=== PATIENT | male | born 1970 | race Caucasian/White ===

== ENCOUNTER 2024-09-12 06:29 | Outpatient (OUT) | payer OTHER, SELFPAY ==
[2024-09-12 06:43] LABS: Basophils Percent Auto 0.8 % (0.2-2.0); Eosinophils Absolute Auto 0.3 10^3/uL (0.0-0.7); Eosinophils Percent Auto 5.2 % (0.9-7.0); Hematocrit 44.9 % (42.0-54.0); Hemoglobin 15.1 g/dL (14.0-18.0); Immature Granulocytes Abs Auto 0.03 10^3/uL (0.00-0.03); Immature Granulocytes Pct Auto 0.6 % (0.0-0.5); Lymphocytes Absolute Auto 1.6 10^3/uL (1.2-3.8); Lymphocytes Percent Auto 30.8 % (20.5-60.0); Mean Corpuscular HGB Conc 33.6 g/dL (29.9-35.2); Mean Corpuscular Hemoglobin 30.4 pg (25.9-34.0); Mean Corpuscular Volume 90.3 fL (80.0-94.0); Mean Platelet Volume 10.8 fL (9.5-13.5); Monocytes Absolute Auto 0.5 10^3/uL (0.3-0.8); Monocytes Percent Auto 9.7 % (1.7-12.0); Neutrophils Absolute Auto 2.7 10^3/uL (1.4-6.5); Neutrophils Percent Auto 52.9 % (43.0-75.0); Platelet Count 98 10^3/uL (150-450); Red Blood Count 4.97 10^6/uL (4.70-6.10); Red Cell Distribution Width 13.6 % (11.0-15.0)
[2024-09-12 07:29] LABS: Alanine Aminotransferase 41 U/L (16-63); Albumin Globulin Ratio 1.3; Albumin Level 3.9 g/dL (3.4-5.0); Alkaline Phosphatase 66 U/L (46-116); Anion Gap 12.1; Aspartate Amino Transferase 33 U/L (15-37); BUN Creatinine Ratio 16.7; Bilirubin Total 1.5 mg/dL (0.2-1.0); Calcium 8.7 mg/dL (8.5-10.1); Carbon Dioxide 30.1 mmol/L (21.0-32.0); Chloride 105 mmol/L (98-107); Chol HDL Ratio 3.3; Cholesterol 243 mg/dL (<=200); Estimated GFR (African America >60 (>=60 mL/min/1.73m^2); Estimated GFR (Non-African Ame >60 (>=60 mL/min/1.73m^2); Glucose 97 mg/dL (74-106); HDL Cholesterol 73 mg/dL (40-60); Potassium 4.2 mmol/L (3.5-5.1); Sodium 143 mmol/L (136-145); Thyroid Stimulating Hormone 2.334 uIU/mL (0.358-3.740); Total Protein 6.9 g/dL (6.4-8.2); Triglycerides 89 mg/dL (<=150); VLDL CHOLESTEROL 17.8 mg/dL
[2024-09-12 07:35] LABS: Prostate Specific Antigen Scrn 0.59 ng/mL (<=4.00)
== END 2024-09-12 06:30 | disposition home or self-care (01) ==
LOC: LAB 06:29
PROVIDERS: PCP Family Medicine; Visit Provider Family Medicine
DX: Z00.00 Encounter for general adult medical examination without abnormal findings (principal); Z12.5 Encounter for screening for malignant neoplasm of prostate
CPT/HCPCS: 36415; 80053; 80061; 84443; 85025; G0103

== ENCOUNTER 2025-09-21 06:25 | Outpatient (OUT) | payer OTHER, SELFPAY ==
--- OUTSIDE RECORDS SUMMARY | 2025-09-14 10:00 | XMS_ITS | Encounter Summary ---
Author Organization [facility] Healthcare Address [address] [place] [address] Care Team Providers Care Entry Level Manufacturing Engineer Name Role Phone Margarita De La Cruz MD Primary Care Provider [phone] Reason for Visit * ReasonCommentsConsultUmbilical hernia- No pain, just growing in size * Consultation (Routine) - ClosedSpecialtyDiagnoses / ProceduresReferred By ContactReferred To ContactGeneral Surgery Diagnoses Umbilical hernia without obstruction or gangrene Procedures [place] OFFICE/OUTPATIENT [facility] MDM 60 MINUTES Margarita De La Cruz MD [address] [facility] [place] [address] Phone: tel: fax: [facility] [address] [place] [phone] Phone: tel: fax: Referral IDStatusReasonStart DateExpiration DateVisits RequestedVisits [id number] Required Encounter Details DateTypeDepartmentCare Team (Latest Contact Info)Murvzragygg32/21/2025 10:00 AM ESTConsult [facility] [address] [place] [phone] Gaston Yuan MD [address] [place] [id number] Umbilical hernia without obstruction and without gangrene (Primary Dx) Social History Tobacco UseTypesPacks/DayYears UsedDateSmoking Tobacco: NeverSmokeless Tobacco: Never Tobacco Cessation:Counseling Given: Not Answered Sex and Gender InformationValueDate RecordedSex Assigned at BirthNot on file Legal BdoSwtg9402/22/2023 8:35 PM EDTGender IdentityNot on fileSexual Orientation Not on filedocumented as of this encounter Last Filed Vital Signs Vital SignReadingTime TakenCommentsBlood Wbwcixsq623/7411 10:34 AM EST Pulse--Temperature--Respiratory Rate--Oxygen Saturation--Inhaled Oxygen Concentration--Gufaqh75.3 kg (210 lb)09/14/2025 10:34 AM MASRzzfry580.9 cm (6') 09/14/2025 10:34 AM ESTBody Mass Index28.4809/14/2025 10:34 AM ESTdocumented in this encounter Progress Notes * Gaston Reese MD - 09/14/2025 10:00 AM EST Images from the original note were not included. Greg Weathers 1970 Greg Weathers is a 55 y.o. male presents with chief complaint of Consult (Umbilical hernia- No pain, just growing in size) HPI: Mr Weathers is a 55 year old male presenting for evaluation for a potential umbilical hernia. He is interested in treatment to avoid potential complications. He estimates he first noticed this about a year ago. He feels the size of the bulge has been increasing in size recently. He denies any pain and states the bulge has always been reducible. He denies fever, chills, chest pain, SOB, change in appetite, nausea, vomiting, abdominal pain, difficulty urinating. He denies any known medication allergies. His only daily medications are Celebrex and Pulmicort. He denies taking blood thinners. His only previous surgery was for a Right inguinal hernia around 1993, for which he has not had any complications. SUBJECTIVE: MEDICATIONS: ALLERGIES Current Outpatient Medications Medication Instructions celecoxib (CELEBREX) 100 mg, 2 times daily multivitamin with minerals (Centrum) 9-200 mg-mcg tablet split tablet 1 tablet Pulmicort Flexhaler 180 MCG/ACT inhaler 2 puffs, 2 times daily Allergies[1] PAST MEDICAL HISTORY: SOCIAL HISTORY SURGICAL HISTORY: Medical History[2] Social History[3] Surgical History[4] REVIEW OF SYMPTOMS: Review of Systems Constitutional: Negative for chills and fever. Respiratory: Negative for cough and shortness of breath. Cardiovascular: Negative for chest pain. Gastrointestinal: Negative for abdominal pain, nausea and vomiting. Genitourinary: Negative for difficulty urinating. OBJECTIVE: Visit Vitals BP 120/74 Ht 6' Wt 210 lb BMI 28.48 kg/m?? Smoking Status Never BSA 2.2 m?? Physical Exam Constitutional: General: He is not in acute distress. Appearance: Normal appearance. He is not ill-appearing. Cardiovascular: Rate and Rhythm: Normal rate and regular rhythm. Heart sounds: Normal heart sounds. No murmur heard. Pulmonary: Effort: Pulmonary effort is normal. No respiratory distress. Breath sounds: Normal breath sounds. No wheezing. Abdominal: General: Abdomen is flat. Bowel sounds are normal. There is no distension. Palpations: Abdomen is soft. Tenderness: There is no abdominal tenderness. There is no guarding. Hernia: A hernia is present. Comments: Reducible Umbilical hernia .fascial defect measuring about 2 cm Neurological: Mental Status: He is alert and oriented to person, place, and time. ASSESSMENT AND PLAN: Assessment/Plan Diagnoses and all orders for this visit: Umbilical hernia without obstruction and without gangrene Other orders - Ambulatory referral to General Surgery The plan will be to repair the umbilical hernia with mesh. Procedure, benefits, risks including risks of bleeding, infection, recurrence of hernia, hematoma / seroma were discussed. Booklet on herniasurgery was reviewed with the patient. [1] No Known Allergies [2] Past Medical History: Diagnosis Date Asthma (HCC) Uveitis [3] Social History Tobacco Use Smoking status: Never Smokeless tobacco: Never Substance Use Topics Drug use: Never [4] Past Surgical History: Procedure Laterality Date HERNIA REPAIR Right Inguinal hernia repair documented in this encounter Plan of Treatment DateTypeDepartmentCare Team (Latest Contact Info)Qvkiwnheale43/22/2025 11:30 AM ESTOffice Visit [facility] [address] [phone] Gaston Yuan MD [address] [address] documented as of this encounter Visit Diagnoses Diagnosis Umbilical hernia without obstruction and without gangrene- Primary documented in this encounter Care Teams Team MemberRelationshipSpecialtyStart DateEnd Date Margarita De La Cruz MD [address] [place] [phone] PCP - GeneralFamily Mfcuzfjy43/21/25documented as of this encounter
--- OUTSIDE RECORDS SUMMARY | 2025-09-21 06:30 | XMS_ITS | CCD ---
Author Organization [facility] Care Team Providers Care Lens Coating Technician Name Role Phone MARGARITA MONROE Attending Unavailable MARGARITA MONROE Admitting Unavailable MARGARITA MONROE Primary Care Unavailable MARGARITA MONROE Consulting Unavailable MARGARITA MONROE Attending Unavailable MARGARITA MONROE Admitting Unavailable MARGARITA MONROE Primary Care Unavailable MARGARITA MONROE Consulting Unavailable SARAH SUAREZ Consulting Unavailable MARGARITA MONROE Attending Unavailable MARGARITA MONROE Admitting Unavailable MARGARITA MONROE Primary Care Unavailable MARGARITA MONROE Consulting Unavailable MARGARITA MONROE Attending Unavailable MARGARITA MONREO Admitting Unavailable MARGARITA MONROE Primary Care Unavailable Margarita Monroe Primary Care Provider Margarita Monroe Unavailable Primary Care Provider Unavailjania e SHEREE YOON Attending Unavailable KAMRAN VENCES Attending Unavailable Margarita Monroe MD Primary Care Provider Margarita Monroe MD Attending Provider Medications Current Medications MedicationDrug Class(es)DatesSig (Normalized)Sig (Original)atropine sulfate 10 mg/ml ophthalmic solution (3 sources)Anticholinergic, Cholinergic Muscarinic AntagonistStart: 05-28-2025 End: 54-23-9890dngk 1 drop(s) into the eye(s) in the morning, then take 1 drop(s) into the eye(s) in the evening, then take 1 drop(s) into the eye(s) at bedtimeatropine 1 % ophthalmic solution Indications: Intermediate uveitis of left eye Administer 1 drop into both eyes in the morning and 1 drop in the evening and 1 drop before bedtime. Do all this for 14 days. 5 mL 1 05/28/2025 06/11/2025 Activeazithromycin 250 mg oral tablet (1 source)Macrolide AntimicrobialStart: 65-31-2178Qdpkiugzipdk 250 MG as directed Orally 2 tabs po today, then 1 tab daily x 4 more days for 5 Jun, Activebenzonatate 200 mg oral capsule (1 source)Non-narcotic AntitussiveStart: 52-91-2407qxgh 1 capsule by mouth every eight hoursBenzonatate 200 MG 1 capsule Orally Three times a day for 10 day(s) Jun, ActiveBudesonide (10 sources)CorticosteroidStart: 45-73-7397Tgxxblwpvm 180 mcg/actuation aerosol powdr breath activated Active 2 INH INHALATION Twice daily 1 3August 24, 2025 1:52pm Complies with drug therapyStart: 01-81-1905bhds 2 puff(s) by inhalation in the morningPulmicort Flexhaler 180 MCG/ACT inhaler Inhale 2 puffs in the morning and 2 puffs before bedtime. 03/27/2025 ActiveStart: 03-27-2025 End: 17-31-7828Vhhvrowurc 180 mcg/actuation aerosol powdr breath activated Discontinued 2 INH INHALATION Twice daily 1 March 27, 2025 1:25pm August 24, 2025 1:52pmStart: 09-07-2024 End: 66-86-9019Sxwljrieuz 180 mcg/actuation aerosol powdr breath activated Discontinued 2 INH INHALATION Twice daily 1 September 07, 2024 10:19am March 27, 2025 1:25pmStart: 79-73-2513Jvewvuqlfs 180 mcg/actuation aerosol powdr breath activated Active 2 INH INHALATION Twice daily September 07, 2024 9:19amStart: 07-07-2024 End: 36-86-9317pmuo 90 ug by inhalation twice dailyBudesonide (Pulmicort Flexhaler) 90 mcg/actuation aerosol powdr breath activated Discontinued 2 INH INHALATION Twice daily 10 27July 07, 2024 12:00am September 07, 2024 10:21amcelecoxib 100 mg oral capsule (11 sources)Nonsteroidal Anti-inflammatory DrugStart: 99-11-1949hnym 1 capsule by mouth in the morningcelecoxib (CeleBREX) 100 MG capsule Take 100 mg by mouth in the morning and 100 mg before bedtime. 03/27/2025 ActiveStart: 06-29-2024 End: 84-32-1460vyfz 1 capsule by mouth twice dailyCelecoxib 100 mg capsule Active 0 .ROUTE .COMPLEX 180 3 June 26, 2025 1:48pm TAKE 1 CAPSULE BY MOUTH TWICE A DAY Complies with drug therapyStart: 06-29-2024 End: 91-34-2436xebd 1 capsule by mouth twice dailyCelecoxib (Celebrex) 100 mg capsule Discontinued 100 MG PO Twice daily June 29, 2024 12:00am June 29, 2024 11:18amtake 1 capsule by mouth twice dailyCelecoxib 100 MG TAKE 1 CAPSULE BY MOUTH TWICE A DAY for 90 Activehomatropine hydrobromide 50 mg/ml ophthalmic solution (2 sources)Cholinergic Muscarinic AgonistStart: 05-21-2025 End: 34-78-5204oehdlxibcgo 5 % ophthalmic solution Indications: Intermediate uveitis of left eye Administer 1 dropinto both eyes in the morning and 1 drop at noon and 1 drop in the evening and 1 drop before bedtime. Do all this for 14 days. 5 mL 05/21/2025 05/28/2025 Discontinued (Other)Multivitamin Adults - (2 sources)Start: 61-18-9756Rjkbcdhkzzti Adults - as directed Orally daily for 0 days Apr, ActiveMultivitamin tablet (2 sources)Start: 47-15-0774ksob 1 tablet by mouth once dailyMultivitamin tablet Active 1 TAB PO Daily September 07, 2024 1:00am Complies with drug therapy Start: 78-74-7460tgkq 1 tablet by mouth once dailyMultivitamin tablet Active 1 TAB PO Daily September 07, 2024 12:00am Completed/Discontinued Medications MedicationDrug Class(es)DatesSig (Normalized)Sig (Original)dexamethasone 1 mg/ml / tobramycin 3 mg/ml ophthalmic suspension (4 sources)Aminoglycoside Antibacterial, CorticosteroidStart: 05-21-2025 End: 81-08-1349pmivsselhe-dexAMETHasone (Tobradex) ophthalmic suspension Indications: Intermediate uveitis of lefteye Administer 2 drops into the left eye in the morning and 2 drops at noon and 2 drops in the evening and 2 drops before bedtime. Do all this for 10 days. 5 mL 05/21/2025 06/04/2025 Cpxrcqe669 actuat fluticasone propionate 0.11 mg/actuat metered dose inhaler (8 sources)CorticosteroidStart: 02-25-2024 End: 35-33-1351twnp 2 puff(s) by mouth twice dailyFluticasone Propionate 110 mcg/actuation HFA aerosol inhaler Discontinued 0 .ROUTE .COMPLEX 12 July 07, 2024 12:12pm September 07, 2024 10:10am INHALE 2 PUFFS BY MOUTH TWICE DAILYStart: 02-25-2024 End: 01-25-6185gbfm 1 puff(s) by inhalation twice dailyFluticasone Propionate 110 mcg/actuation HFA aerosol inhaler Discontinued 2 PUFF INHALATION Twice daily February 25, 2024 12:00am February 25, 2024 10:34amtake 2 puff(s) by mouth twice daily Flovent HFA 110 MCG/ACT INHALE 2 PUFFS BY MOUTH TWICE DAILY for 30 Active Fluticasone Propionate 110 mcg/actuation HFA aerosol inhaler (6 sources)Start: 07-07-2024 End: 06-40-6863wuja 2 puff(s) by mouth twice dailyFluticasone Propionate 110 mcg/actuation HFA aerosol inhaler Discontinued 0 .ROUTE .COMPLEX July 07, 2024 11:12am September 07, 2024 9:10am INHALE 2 PUFFS BY MOUTH TWICE DAILYStart: 07-03-2024 End: 53-28-2175ohmu 2 puff(s) by mouth twice dailyFluticasone Propionate 110 mcg/actuation HFA aerosol inhaler Discontinued 0 .ROUTE .COMPLEX July 03, 2024 10:11am July 07, 2024 11:12am INHALE 2 PUFFS BY MOUTH TWICE DAILYStart: 2024 End: 04-23-4291rouy 2 puff(s) by mouth twice dailyFluticasone Propionate 110 mcg/actuation HFA aerosol inhaler Discontinued 0 .ROUTE .COMPLEX 2024 12:17pm July 03, 2024 10:12am INHALE 2 PUFFS BY MOUTH TWICE DAILYStart: 04-07-2024 End: 03-49-7433osxf 2 puff(s) by mouth twice dailyFluticasone Propionate 110 mcg/actuation HFA aerosol inhaler Discontinued 0 .ROUTE .COMPLEX 2023 11:49am 2024 12:17pm INHALE 2 PUFFS BY MOUTH TWICE DAILY Start: 02-25-2024 End: 50-39-2680rvyi 2 puff(s) by mouth twice dailyFluticasone Propionate 110 mcg/actuation HFA aerosol inhaler Discontinued 0 .ROUTE .COMPLEX February 25, 2024 9:34am April 07, 2024 11:49am INHALE 2 PUFFS BY MOUTH TWICE DAILYStart: 02-25-2024 End: 84-92-8482wffn 1 puff(s) by inhalation twice dailyFluticasone Propionate 110 mcg/actuation HFA aerosol inhaler Discontinued 2 PUFF INHALATION Twice daily February 24, 2024 11:00pm February 25, 2024 9:34am Problems Active Problems Problem ClassificationProblemDateDocumented DateEpisodic/ChronicAsthma (5 sources)Asthma; Translations: [Unspecified asthma, uncomplicated]09-07-2024 ChronicChronic obstructive pulmonary disease and bronchiectasis (1 source)Bronchitis, not specified as acute or chronicEpisodicCoagulation and hemorrhagic disorders (6 sources)Thrombocytopenia, unspecified; Translations: [Thrombocytopenic disorder]Onset: 96-53-5696UjopkgxXfxwwbgduudw; infection of eye (except that caused by tuberculosis or sexually transmitteddisease) (2 sources)Intermediate uveitis; Translations: [Posterior cyclitis, left eye] 60-22-6232IpyrnehVqraqirieeop; infection of eye (except that caused by tuberculosis or sexually transmitteddisease) (1 source)Keratitis; Translations: [Unspecified keratitis]60-53-2497Aaomguex Osteoarthritis (4 sources)Osteoarthritis; Translations: [Unspecified osteoarthritis, unspecified site]ChronicOther connective tissue disease (2 sources)Pain in right arm; Translations: [Pain in right arm]EpisodicOther gastrointestinal disorders (2 sources)Diarrhea; Translations: [Diarrhea, unspecified]12-00-9641Lfsimkoc Other non-traumatic joint disorders (2 sources)Shoulder joint pain; Translations: [Pain in left shoulder]Episodic Other screening for suspected conditions (not mental disorders or infectious disease) (3 sources)Patient encounter status; Translations: [Encounter for screening for malignant neoplasm of prostate]62-79-4247Yorlafsy Past or Other Problems Problem ClassificationProblemDateDocumented DateEpisodic/ChronicOther connective tissue disease (4 sources)Pain in right arm; Translations: [PAIN IN RIGHT ARM]Onset: 04-01-2020 Episodic Results Test NameValueInterpretationReference RangeFacilityCNOVSPon 52-81-3010BLZKUO Visit (SP) Office ([place]) SARAH WEATHERS ([id number]) 1970 M Date Time Provider Department 01/31/21 9:30 AM CARA CHANDLER During your visit today, we recorded the following information about you: Temperature Pulse Respiration Blood pressure 97.7 degrees 60/minute 16/minute 142/70 Weight Height 90.2 kg 1.829 m CARA CHANDLER PA-C 01/31/2021 1:37 PM Signed PATIENT NAME: Sarah Weathers CLINIC NO.: [id number] ATTENDING PHYSICIAN: Dru Panda MD DATE OF SERVICE: January 31, 2021 ? (Elements copied from Dr. Panda's note dated November 01, 2020, have been reviewed and updated where appropriate, and all reflect current assessment and medical decision making during today's encounter, January 31, 2021) ? Diagnosis: ? 1.Thrombocytopenia ? 2. Uveitis ? Treatment History: ? 1. None ? HPI: Sarah Weathers is a 50 year old year old male here for follow up. Feels well and denies any new complaints at this time. No nausea and also diarrhea. ? He denies h/o excessive drinking. ? His work up including paraproteins, B12, Folate and also negative Hep studies, HIV, ROSALINO normal, YAHAIRA positive but Anti DS DNA was negative and additional serologies were negative. ? He did have CT of the chest and Abdomen and Pelvis 10/30/2020 with cirrhosis and also mild splenomegaly and trace pelvic ascites and also Gastroesophageal varices. HPI: Sarah Weathers is a 50 year old male who presents in follow up. Since his last visit he did see rheumatology and GI. His EGd and colonoscopy were done 01/15 and negative. He contineus to feel well and has no bleeding or bruising issues. SUBJECTIVE ROS: GENERAL: No weight loss, malaise or fevers., SEE HPI HEENT: Negative for frequent or significant headaches, No changes in hearing or vision, no nose bleeds or other nasal problems RESPIRATORY: Negative for cough, wheezing or shortness of breath. CARDIOVASCULAR: Negative for chest pain, leg swelling or palpitations. GI: Negative for abdominal discomfort, blood in stools or black stools or change in bowel habits : No history of dysuria, frequency or incontinence MUSCULOSKELETAL: Negative for: joint pain or swelling, back pain and muscle pain SKIN: Negative for lesions, rash, and itching. HEMATOLOGY/LYMPHOLOGY: Negative for prolonged bleeding, bruising easily or swollen nodes. NEURO: No history of headaches, syncope, paralysis, seizures or tremors All other systems reviewed are negative. Current Outpatient Medications Medication Sig - ALBUTEROL INHALATION Inhale as instructed. - polyethylene glycol 3350 (MIRALAX, GLYCOLAX) 17 gram/dose powder Use as directed for Miralax / Gatorade Bowel Prep Kit (Patient not taking: Reported on 01/08/2021 ) - Gatorade Sports Drink Use as directed for Miralax / Gatorade Bowel Prep Kit (Patient not taking: Reported on 01/08/2021 ) - Bisacodyl (DULCOLAX) 5 mg tab Use as directed for Miralax / Gatorade Bowel Prep Kit (Patient not taking: Reported on 01/08/2021 ) - MULTI-VITAMIN ORAL once daily. - celecoxib (CELEBREX) 100 mg capsule Take 1 capsule by mouth twice daily. - FLOVENT HFA 110 mcg/actuation inhaler INHALE 2 (TWO) puffs BY MOUTH TWICE DAILY No current facility-administered medications for this visit. PAST MEDICAL HISTORY Diagnosis Date - Asthma - Thrombocytopenia (HCC) PHYSICAL EXAM: BP 142/70 Pulse 60 Temp 36.5 ?C (97.7 ?F) (Temporal) Resp 16 Ht 182.9 cm (6' 0.01 ) Wt 90.2 kg (198 lb 12.8 oz) SpO2 100% BMI 26.96 kg/m? Exam limited to gross visualization where appropriate due to COVID-19. Gen.: This is an age-appropriate patient in no acute distress. Head: Appears atraumatic with no visible lesions. Eyes: Pupils equally round and reactive to light, extraocular muscles are intact. Neck: Supple. Mouth: Mucous membranes appeared to be moist. Respiratory: Appears to be respiring comfortably. Neurologic: Nonfocal to gross visualization. Alert and oriented ?3. Psychiatric: No evidence of inappropriate anxiety or depression. Skin: Visible areas of skin without rash, lesions, wounds or petechiae. LAB: Hemoglobin (g/dL) Date Value 01/31/2021 14.0 Hematocrit (%) Date Value 01/31/2021 41.4 WBC (k/uL) Date Value 01/31/2021 4.52 PATH: ? Imaging: CT of the chest and Abdomen and Pelvis 10/30/2020: ? 1. ?No evidence of intra-abdominal/intrapelvic lymphadenopathy. 2. ?Nodular hepatic contour compatible with cirrhosis. 3. ?Mild splenomegaly, trace pelvic ascites and small gastroesophageal varices compatible with portal hypertension. 1. ?No evidence of intrathoracic lymphadenopathy. 2. ?No evidence of active cardiopulmonary disease. ? ASSESSMENT/PLAN: 1. Thrombocytopenia This is likely secondary to underlying cirrhosis. Would recommend he continue to follow up with hepatology. He can get yearly labs w (more content not included)...NormalOhiohealth Grant Medical CenterComp Metabolic Panelon 01-31-2021 Albumin [Mass/Vol]4.4 g/dLNormal3.9-4.9ClevelUniversity Hospitals Lake West Medical Center ClevelandALP [Catalytic activity/Vol]56 U/WYdiztm41-575Qmoeeglev Clinic ClevelandALT [Catalytic activity/Vol]23 U/VYkgyjg30-37Tfyqxcilw Clinic ClevelandAnion gap [Moles/Vol]7 mmol/LLow9-18[facility]AST [Catalytic activity/Vol]31 U/LNormal 14-40[facility] ClevelandBilirubin [Mass/Vol]1.2 mg/dLNormal0.2-1.3 [facility] ClevelandCalcium [Mass/Vol]9.7 mg/dLNormal8.5-10.2CUniversity Hospitals Beachwood Medical Center ClevelandChloride [Moles/Vol]101 mmol/JRagtnf40-654Nqgvxjiib Clinic ClevelandCO2 [Moles/Vol]28 mmol/YLtmrhi58-45DqvgzzwwwOhiohealth Grant Medical CenterCreatinine [Mass/Vol]1.13 mg/dLNormal0.73-1.22Ohio[facility] Grant Medical CentereGFR- Amer. >60NormalCleveland Formerly [facility], Vidant North HospitaleGFR-All Other Races>60NormalClevelGranville Medical Centerment on above:Result Comment: eGFR (Estimated GFR) Units of measure: mL/min/1.73 meters squared eGFR is derived from the reexpressed MDRD Study equation using the following parameters: serum creatinine, age, gender and race. The creatinine assay has been calibrated to be traceable to IDMS. An eGFR <60 mL/min/1.73m2 for >3 months is consistent with chronic kidney disease. Refer to KDOQI guidelines for clinical interpretation. In patients with unstable renal function, e.g. those with acute kidney injury, the eGFR may not accurately reflect actual GFR.Glucose [Mass/Vol]88 mg/dLNormal 74-99[facility] on above:Result Comment: The [place] Diabetes [employer] (ADA) provides guidance for cutoff values for fasting glucose and random glucose. The ADA defines fasting as no caloric intake for at least 8 hours. Fasting plasma glucose results between 100 to 125 mg/dL indicate increased risk for diabetes (prediabetes). Fasting plasma glucose results greater than or equal to 126 mg/dL meet the criteria for diagnosis of diabetes. In the absence of unequivocal hyperglycemia, results should be confirmed by repeat testing. In a patient with classic symptoms of hyperglycemia or hyperglycemic crisis, random plasma glucose results greater than or equal to 200 mg/dL meet the criteria for diagnosis of diabetes. Reference: Standards of Medical Care in Diabetes 2016, [place] [employer]. Diabetes Care. 2016.39(Suppl 1).Potassium [Moles/Vol]4.5 mmol/L Normal3.7-5.1CUniversity Hospitals Beachwood Medical Center ClevelandProtein [Mass/Vol]6.6 g/dLNormal6.3-8.0 [facility] CenterSodium [Moles/Vol]136 mmol/KXeoxxs287-067PwoxldcplOhiohealth Grant Medical CenterUrea nitrogen [Mass/Vol]21 mg/dLNormal9-24[facility] Medical CenterRemote CBCDIF (for [facility] use only)on 91-65-7197Sty Baso<0.03Normal<0.11 [facility] CenterAbs Mono0.47 k/uLNormal<0.87[facility] Abs Neut2.71 k/uLNormal1.45-7.50[facility] Medical CenterAbsolute nRBC<0.01 Normal<0.01[facility] Medical CenterBasophils/100 WBC (Bld)0.4 %NormalOhiohealth Grant Medical CenterDTYPEAuto DiffNormalCSumma HealthEosinophils (Bld) [#/Vol]0.11 10*3/uLNormal<0.46Ohio[facility] Grant Medical CenterEosinophils/100 WBC (Bld)2.4 %NormalOhiohealth Grant Medical CenterErythrocyte distribution width (RBC) [Ratio]13.4 %Ruvwdj60.5-15.0[facility] Medical CenterHematocrit (Bld) [Volume fraction]41.4 %Quftih41.0-51.0[facility] Medical CenterHemoglobin (Bld) [Mass/Vol]14.0 g/jXUbgbsb80.0-17.0[facility] Medical CenterLymphocytes (Bld) [#/Vol]1.20 10*3/uLNormal1.00-4.00[facility] Medical CenterLymphocytes/100 WBC (Bld)26.5 %NormalOhiohealth Grant Medical CenterMCH30.1 vXUesiby24.0-34.0[facility] HospitalHC (RBC) [Mass/Vol]33.8 g/jFGzicmn35.5-36.0[facility] HospitalV (RBC) [Entitic vol]89.0 oDCdakkp56.0-100.0[facility] CenterMonocytes/100 WBC (Bld)10.4 %NormalOhiohealth Grant Medical Center Neutrophils/100 WBC (Bld)60.3 %NormalOhiohealth Grant Medical CenterNRBCs0.0 /100 WBC Klmjvu0KfzxxbkpxOhiohealth Grant Medical CenterPlatelet mean volume (Bld) [Entitic vol]11.3 fL Normal9.0-12.7CUniversity Hospitals Beachwood Medical Center Clepromedica memorial hospitalPlatelets (Bld) [#/Vol]97 10*3/uLLow 150-400Ohio[facility] Grant Medical CenterComment on above:Result Comment: Sample checked for a clot.RBC (Bld) [#/Vol]4.65 10*6/uLNormal4.20-6.00[facility] Medical CenterWBC (Bld) [#/Vol]4.52 10*3/uLNormal3.70-11.00[facility] ANES POSTPROC EVALon [id number] POSTPROC EVALHNO ID: [id number] Author: Nadir Moore Service: Anesthesiology Author Type: Anesthesiologist Type: Anesthesia Postprocedure Evaluation Filed: 01/15/2021 11:57 AM Note Text: POST ANESTHESIA EVALUATION NOTE : 1970 Procedure Summary Date: 01/15/21 Room / Location: ENDO 01 / AV ENDO Anesthesia Start: 1035 Anesthesia Stop: 1114 Procedures: COLONOSCOPY (N/A Colon Sigmoid) EGD (N/A Throat) Diagnosis: Malignant neoplasm of colon, unspecified part of colon (HCC) Cirrhosis of liver with ascites, unspecified hepatic cirrhosis type (HCC) Portal hypertension (HCC) Esophageal varices without bleeding, unspecified esophageal varices type (HCC) Surgeons: Tristan Asaad Responsible Provider: Nadir Moore Anesthesia Type: MAC ASA Status: 3 Anesthesia Type: MAC Last vitals Vitals Value Taken Time BP 112/67 01/15/21 1135 Temp 36.6 ?C (97.8 ?F) 01/15/21 1115 Pulse 72 01/15/21 1135 Resp 16 01/15/21 1135 SpO2 99 % 01/15/21 1135 Post Anesthesia Patient Status Patient Evaluation: PACU. PACU/ICU Patient Condition: stable. Anticipated Disposition: phase 2 then home. Neurological Status: aware and responsive. Pulmonary Status: breathing comfortably on room air Airway Control: returned to baseline unsupported. Cardiovascular Status: stable. Pain Management: clinically adequate - multimodal analgesia pain management approach Postoperative Hydration: acceptable. Intraoperative Events: no significant anesthesia events Recommendation: continue current plan of care. No complications documented. SIGNATURE: Nadir Moore MD PATIENT NAME: Sarah Weathers DATE: January 15, 2021 TIME: 11:57 AM CSN: [id number] [facility] Hospital PRE-OPon [id number] PRE-OPHNO ID: [id number] Author: Nadir Moore Service: Anesthesiology Author Type: Anesthesiologist Type: Anesthesia Preprocedure Evaluation Filed: 01/15/2021 10:26 AM Note Text: ANESTHESIOLOGY DAY OF SURGERY NOTE : 1970 Procedure(s) (LRB): COLONOSCOPY (N/A) EGD (N/A) Surgeon(s): Impierce Asaad Estimated body mass index is 27.12 kg/m? as calculated from the following: Height as of 01/08/21: 182.9 cm (6'). Weight as of 01/08/21: 90.7 kg (200 lb). Most recent hematocrit and potassium results: Hematocrit 43.7 10/08/2020 Potassium 4.6 10/08/2020 Relevant Problems CARDIO (+) Portal hypertension (HCC) -RENAL (+) Cirrhosis of liver (HCC) PULMONARY (+) Asthma Other (+) Thrombocytopenia (HCC) I - PHYSICAL EVALUATION AIRWAY Patient intubated: No. Mallampati: II. TM distance: >3 FB. Neck ROM: full ROM without neurological symptoms. Mouth opening: adequate. Short neck: no. Thick neck: no DENTAL Normal dental observations. Dental findings: teeth intact. Additional exam findings: yes. CARDIOVASCULAR Rhythm: regular Rate: normal PULMONARY Breath sounds clear to auscultation. II - ANESTHESIA PLAN ASA Score: 3 Anesthetic Plan: MAC NPO Status: adequate Monitoring plan: Standard ASA. Postoperative analgesic plan: parenteral or oral opioids and multimodal analgesia. Anesthetic Risks, Benefits, Alternatives, Personnel Discussed. Consent obtained from: patient.Patient / Surrogate agrees to blood products: blood products not planned DNR status not reviewed with patient and/or family prior to surgery. Significant changes in the patient condition since the History and Physical, not otherwise documented in primary service progress note: no. Potential Anesthesia issues that may suggest increased risk of complications or contraindication to planned procedure: none. No vitals data found for the desired time range. Facility-Administered Medications as of 01/15/2021 Medication Dose Route Frequency - NaCl 0.9% iv infusion 50 mL/hr INTRAVENOUS CONTINUOUS Outpatient Medications as of 01/15/2021 Medication Sig - MULTI-VITAMIN ORAL once daily. - celecoxib (CELEBREX) 100 mg capsule Take 1 capsule by mouth twice daily. - FLOVENT HFA 110 mcg/actuation inhaler INHALE 2 (TWO) puffs BY MOUTH TWICE DAILY I have interviewed and examined the patient. I have reviewed the medical record and/or the pre-anesthesia evaluation, pertinent labs, and test results. This contains updated information obtained within 48 hours of Surgery/Procedure. SIGNATURE: Nadir Moore MD PATIENT NAME: Sarah Weathers DATE: January 15, 2021 TIME: 10:26 AM CSN: [id number] Community Hospital PHYSICALon 01-15-2021 HISTORY PHYSICALHNO ID: [id number] Author: Tristan Asaad Service: ? Author Type: Physician Type: HANDP Filed: 01/15/2021 10:30 AM Note Text: PROCEDURAL SEDATION HISTORY AND PHYSICAL EXAM SERVICE DATE: 01/15/2021 SERVICE TIME: 1029 Subjective HPI: This is a 50 year old male with liver cirrhosis who presents for EGD for esophageal variceal screening and for screening colonoscopy PAST ANESTHESIA HISTORY: No history of adverse event PAST MEDICAL HISTORY Diagnosis Date - Asthma - Thrombocytopenia (HCC) PAST SURGICAL HISTORY Procedure Laterality Date - HERNIA REPAIR HX ~1993 Prior to Admission medications as of 01/15/21 1021 Medication Sig Last Dose Taking MULTI-VITAMIN ORAL once daily. Past Week at Unknown time Yes celecoxib (CELEBREX) 100 mg capsule Take 1 capsule by mouth twice daily. Past Week at Unknown time Yes FLOVENT HFA 110 mcg/actuation inhaler INHALE 2 (TWO) puffs BY MOUTH TWICE DAILY 01/15/2021 at Unknown time Yes ALBUTEROL INHALATION Inhale as instructed. polyethylene glycol 3350 (MIRALAX, GLYCOLAX) 17 gram/dose powder Use as directed for Miralax / Gatorade Bowel Prep Kit Patient not taking: Reported on 01/08/2021 Gatorade Sports Drink Use as directed for Miralax / Gatorade Bowel Prep Kit Patient not taking: Reported on 01/08/2021 Bisacodyl (DULCOLAX) 5 mg tab Use as directed for Miralax / Gatorade Bowel Prep Kit Patient not taking: Reported on 01/08/2021 ALLERGIES No Known Allergies Objective PHYSICAL EXAM: The remainder of the physical exam is noncontributory. AIRWAY: LUNGS: Lungs clear to auscultation, Good diaphragmatic excursion CARDIAC: Normal S1 and S2; no rubs, murmurs, or gallops Assessment/Plan ASA Class: Active Problems: * No active hospital problems. * Resolved Problems: * No resolved hospital problems. * Provisional Diagnosis/Treatment Plan: Liver cirrhosis, colon cancer screening/EGD, colonoscopy SIGNATURE: Tristan Serrano MD PATIENT NAME: Sarah Weathers DATE: January 15, 2021 TIME: 10:29 AMNormalAvon HospitalPreOp/PreProc COVIDon [id number]-CoV-2 (COVID-19) RNA DAVID+probe Ql (Unsp spec)UPPER RESPIRATORY TRACT SWABNormal [facility] on above:Performed By: #### POCOVD #### [place] [address] CFFY-CoV-2 (COVID-19) RNA DAVID+probe Ql (Unsp spec)NegativeNormal Negative for COVID19 (SARS CoV2) by PCR.[facility] on above:Result Comment: This test was developed and its performance characteristics determined by [facility] [place]. This test has been authorized by FDA under an Emergency Use Authorization (EUA). This test has been validated in accordance with the FDA's Guidance Document Policy for DiagnosticsTesting in Laboratories Certified to Perform High Complexity Testing under CLIA prior to Emergency use Authorization for Coronavirus Disease 2019 during the Public Health Emergency issued on December 23, 2019. Test performed by [facility], [facility] [place], [address] [place] [address].Performed By: #### POCOVD #### [place] [address] PQBJip [id number] (GASTAV) SARAH WEATHERS ([id number]) 1970 M Date Time Provider Department 01/08/21 TRISTAN SERRANO During your visit today, we recorded the following information about you: Pablo Parish LPN 01/08/2021 11:09 AM Signed Call placed to patient. They state receipt and understating of instructions for upcoming procedure with no questions or concerns at this time. Allergies As of Date: 01/08/2021 (No Known Allergies) Date Reviewed: 01/08/2021 Reviewed by: Gracy Luque (Pa) - Fully Assessed Reason for Visit: Pre-Op Teaching [134] Prescriptions as of 01/08/2021 Sig: ALBUTEROL INHALATION Inhale as instructed. POLYETHYLENE GLYCOL 3350 17 G* Use as directed for Miralax /* Patient not taking: Reported on 01/08/2021 GATORADE SPORTS DRINK Use as directed for Miralax /* Patient not taking: Reported on 01/08/2021 BISACODYL 5 MG TABLET Use as directed for Miralax /* Patient not taking: Reported on 01/08/2021 MULTI-VITAMIN ORAL once daily. CELECOXIB 100 MG CAPSULE Take 1 capsule by mouth twice* FLOVENT HFA 110 MCG/ACTUATION* INHALE 2 (TWO) puffs BY MOUTH* Problem List As Of Date 01/08/2021 Noted Resolved Asthma [J45.909] More... Thrombocytopenia (HCC) [D69.6] More... Cirrhosis of liver (HCC) [K74.60] 01/08/2021 More... Portal hypertension (HCC) [K76.6] 01/08/2021 More... Encounter Status:Closed by PABLO PARISH LPN on 01/08/21[facility] PHYSICALon [id number] PHYSICALHNO ID: [id number] Author: Gracy Luque (Pa) Service: ? Author Type: Physician Pipe Line Walker Type: HANDP Filed: 01/08/2021 9:04 AM Note Text: PREANESTHESIA CONSULT CLINIC This is a virtual visit. It required patient-provider interaction for the medical decision making as documented below. Patient has been identified by name and date of : Yes Reason for call: PACC visit Accompanied by: Self Patient name: Sarah Weathers Scheduled Surgery: COLONOSCOPY, EGD CHIEF COMPLAINT: Patient presents with: Pre-Op Visit HPI: This is a 50 year old male who presents for screening for colon cancer. No h/o colon cancer per pt. Recently diagnosed with cirrhosis of liver, portal hypertension per Dr. Serrano. ACTIVE PROBLEM LIST Asthma Thrombocytopenia (Hcc) Cirrhosis of Liver (Hcc) Portal Hypertension (Hcc) PAST MEDICAL HISTORY Diagnosis Date - Asthma - Thrombocytopenia (HCC) PAST SURGICAL HISTORY Procedure Laterality Date - HERNIA REPAIR HX ~1993 FAMILY HISTORY Problem Relation Age of Onset - Clotting Disorder No Family History Social History: Social History Tobacco Use - Smoking status: Never Smoker - Smokeless tobacco: Never Used Substance Use Topics - Alcohol use: Yes Comment: 1-2 drinks once per month - Drug use: Never MEDICATIONS: Current Inpatient Medications Current Outpatient Medications Medication Sig - MULTI-VITAMIN ORAL once daily. - celecoxib (CELEBREX) 100 mg capsule Take 1 capsule by mouth twice daily. - FLOVENT HFA 110 mcg/actuation inhaler INHALE 2 (TWO) puffs BY MOUTH TWICE DAILY - ALBUTEROL INHALATION Inhale as instructed. - polyethylene glycol 3350 (MIRALAX, GLYCOLAX) 17 gram/dose powder Use as directed for Miralax / Gatorade Bowel Prep Kit (Patient not taking: Reported on 01/08/2021 ) - Gatorade Sports Drink Use as directed for Miralax / Gatorade Bowel Prep Kit (Patient not taking: Reported on 01/08/2021 ) - Bisacodyl (DULCOLAX) 5 mg tab Use as directed for Miralax / Gatorade Bowel Prep Kit (Patient not taking: Reported on 01/08/2021 ) No current facility-administered medications for this visit. ALLERGIES: ALLERGIES No Known Allergies REVIEW OF SYSTEMS: PAIN ASSESSMENT: General: No unintentional weight loss, malaise or fevers. 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 No neurological symptoms or problems. Respiratory: No history of current cough or dyspnea, or pneumonia in the past 6 weeks. No history of COPD or LAURA. +asthma - does not use albuterol, using flovent Cardiovascular: No history of HTN requiring medication, no history of angina, CHF, [place], cardiac surgery or stents. Denies rest pain, gangrene or revascularization/amputation for PVD. No history of cardiovascular symptoms or problems. GI: No history of other GI symptoms or problems. No history ETOH greater than 2 drinks per day. + See HPI : No history of dysuria, frequency or incontinence, stones or chronic kidney disease Endocrine: No history of diabetes. Has not taken steroids within the past 30 days. No history of endocrinological symptoms or problems. Hematology: No history of bleeding or clotting disorder. Pt is not taking anti-coagulation or platelet medications. +thrombocytopenia - has seen hematology Oncology: No history of CA metastasis, chemo within 30 days, or radiotherapy within 90 days. Has not lost 10% of body wt in 6 months. No history of oncological symptoms or problems. Psych: No history of psychiatric symptoms or problems. Musculoskeletal: Negative for joint pain or swelling, back pain or muscle pain. Skin: Negative for lesions, rash and itching. PHYSICAL EXAM: VITAL SIGNS: Pulse 76[per pt counting method[ Ht 6' 0 [pt reported[ (1.83m) Wt 200 lb (90.7kg) BMI 27.12 kg/(m2). GENERAL: alert and appropriate, in no distress, well-hydrated, well nourished and happy, smiling, interactive SKIN: no rash noted HEAD: normocephalic, no abnormality or lesion noted EYES: no injection and visual acuity is grossly normal NOSE: external nose normal without rhinorrhea OROPHARYNX: moist mucus membranes NECK: full ROM RESPIRATORY: breathing non-labored CHEST: equal chest rise with normal respiratory effort HEART: pt palpated radial pulse, RRR per pt counting method EXTREMITIES: no swelling, deformities, redness or tenderness per pt NEUROLOGIC: no obvious deficit Diagnostic tests reviewed for today's visit: Lab Value Units Date High Low HB 14.7 g/dL 10/08/2020 17.0 13.0 HCT 43.7 % 10/08/2020 51.0 39.0 WBC 5.05 k/uL 10/08/2020 11.00 3.70 PLT 105 k/uL 10/08/2020 400 150 NA 137 mmol/L 10/08/2020 144 136 K 4.6 mmol/L 10/08/2020 5.1 3.7 GLUC 103 mg/dL 10/08/2020 99 74 BUN 23 mg/dL 10/08/2020 24 9 CREAT 0.94 mg/dL 10/08/2020 1.22 0.73 PTSEC No results within date range. INR No results within date range. APTT No r (more content not included)...NormalChildren[facility] for Rehabilitation ABD LIVER VASCULARon [id number] ABD LIVER VASCULAR* * *Final Report* * * DATE OF EXAM: Dec 06 2020 2:14PM [place] 1233 - US ABD LIVER VASCULAR / PROCEDURE REASON: multiple diagnoses * * * * Physician Interpretation * * * * EXAMINATION: LIVER VASCULAR ULTRASOUND WITH DOPPLER IMAGING CLINICAL HISTORY: Cirrhosis TECHNIQUE: Sonography of the liver with color and spectral Doppler imaging of the hepatic vasculature was performed. Images were obtained and stored in a permanent archive. MQ: USLV_1 COMPARISON: CT dated 10/30/2020 RESULT: Sonographic Findings: Pancreas: Obscured Liver: Echotexture: Coarse Echogenicity: Heterogeneous Surface contour: Nodular Lesions: 1.0 cm right hepatic lobe cyst, unchanged. Biliary: No intrahepatic biliary duct dilation. CBD: 0.5 cm at the hilum. Gallbladder: Normal caliber -Contents: No cholelithiasis -Wall: Normal -Other: No pericholecystic fluid. Right Kidney: No hydronephrosis. Spleen: Craniocaudal length 15.0 cm, enlarged. There are no splenic lesions. Other: No ascites HEPATIC VASCULATURE: PORTAL SYSTEM: -Splenic Vein: Patent with antegrade flow (towards the liver). -Main PV: Patent with normal, phasic antegrade flow (towards liver). 32-34 cm/sec -Right anterior PV: Patent with phasic antegrade flow (towards liver). -Right posterior PV: Patent with phasic antegrade flow (towards liver). -Left PV: Patent with phasic antegrade flow (towards liver). Splenorenal shunt: None Recanalized paraumbilical vein: None HEPATIC ARTERIES: - Main SY: Normal waveform PSV: 47-56 cm/sec. RI: 0.67-0.69 - Right anterior SY: Normal waveform - Right posterior SY: Normal waveform - Left SY: Normal waveform HEPATIC VEINS: -Left: Patent with triphasic waveform. -Middle: Patent with triphasic waveform. -Right: Patent with triphasic waveform. IVC: Patent with normal, phasic wave form. IMPRESSION: PATENT HEPATIC VASCULATURE WITH APPROPRIATELY DIRECTED FLOW. CIRRHOTIC LIVER MORPHOLOGY. NO SUSPICIOUS FOCAL HEPATIC LESION. Manager Bank: PSCB Transcribe Date/Time: Dec 06 2020 2:43P Dictated by : LEYLA PATEL MD This examination was interpreted and the report reviewed and electronically signed by: GEORGINA TIMMONS MD on Dec 06 2020 3:11PM EST [id number] Grant Medical CenterUS DOPPLER COMPLETEon [id number] DOPPLER COMPLETE* * *Final Report* * * DATE OF EXAM: Dec 06 2020 2:34PM [place] 1033 - US DOPPLER COMPLETE / PROCEDURE REASON: multiple diagnoses * * * * Physician Interpretation * * * * EXAMINATION: LIVER VASCULAR ULTRASOUND WITH DOPPLER IMAGING CLINICAL HISTORY: Cirrhosis TECHNIQUE: Sonography of the liver with color and spectral Doppler imaging of the hepatic vasculature was performed. Images were obtained and stored in a permanent archive. MQ: USLV_1 COMPARISON: CT dated 10/30/2020 RESULT: Sonographic Findings: Pancreas: Obscured Liver: Echotexture: Coarse Echogenicity: Heterogeneous Surface contour: Nodular Lesions: 1.0 cm right hepatic lobe cyst, unchanged. Biliary: No intrahepatic biliary duct dilation. CBD: 0.5 cm at the hilum. Gallbladder: Normal caliber -Contents: No cholelithiasis -Wall: Normal -Other: No pericholecystic fluid. Right Kidney: No hydronephrosis. Spleen: Craniocaudal length 15.0 cm, enlarged. There are no splenic lesions. Other: No ascites HEPATIC VASCULATURE: PORTAL SYSTEM: -Splenic Vein: Patent with antegrade flow (towards the liver). -Main PV: Patent with normal, phasic antegrade flow (towards liver). 32-34 cm/sec -Right anterior PV: Patent with phasic antegrade flow (towards liver). -Right posterior PV: Patent with phasic antegrade flow (towards liver). -Left PV: Patent with phasic antegrade flow (towards liver). Splenorenal shunt: None Recanalized paraumbilical vein: None HEPATIC ARTERIES: - Main SY: Normal waveform PSV: 47-56 cm/sec. RI: 0.67-0.69 - Right anterior SY: Normal waveform - Right posterior SY: Normal waveform - Left SY: Normal waveform HEPATIC VEINS: -Left: Patent with triphasic waveform. -Middle: Patent with triphasic waveform. -Right: Patent with triphasic waveform. IVC: Patent with normal, phasic wave form. IMPRESSION: PATENT HEPATIC VASCULATURE WITH APPROPRIATELY DIRECTED FLOW. CIRRHOTIC LIVER MORPHOLOGY. NO SUSPICIOUS FOCAL HEPATIC LESION. Manager Bank: CONSTANTINE Transcribe Date/Time: Dec 06 2020 2:43P Dictated by : LEYLA PATEL MD This examination was interpreted and the report reviewed and electronically signed by: GEORGINA TIMMONS MD on Dec 06 2020 3:11PM EST [id number] Grant Medical CenterANAon [id number] by EIA 0.8 OD RatioNormalCleveland Clinic [facility] Hospital on above:Result Comment: OD Ratio is interpreted as follows: Negative <1.0 Positive >=1.0Performed By: #### AHAVT, AHBCOT, HBSAG, ANAS, IGG, HIV12C, AAT, AHBSQ, AHCV1B, CERULO, SMTHS, MITOS ####[facility] [address] [place], [place] [phone]#### LKM ####[address] [place], [place] [phone] by EIA, QualNegativeNormalNegative [facility] on above:Performed By: #### AHAVT, AHBCOT, HBSAG, ANAS, IGG, HIV12C, AAT, AHBSQ, AHCV1B, CERULO, SMTHS, MITOS ####[facility] [address] [place], [place] [phone]#### LKM ####[address] [place], [place] [phone] 1 antitrypsinon 90-61-8791Wqiqm 1 xelsmxopxme466 mg/hWPljlea06-044ReivelheaCleveland Clinic [facility] Hospital on above:Performed By: #### POCOVD #### [facility] [employer] [address] [place], [place] [address] OIHEla [id number] Visit (GASTAV) SARAH WAETHERS ([id number]) 1970 M Date Time Provider Department 12/02/20 9:40 AM TRISTAN SERRANO GASTSHAWN During your visit today, we recorded the following information about you: Pulse Blood pressure Weight 72/minute 148/79 92.1 kg Tristan Serrano MD 12/07/2020 2:24 PM Addendum Consultation requested by Dr. Dru Padna for an opinion regarding liver cirrhosis. My final recommendations will be communicated back to the requesting physician by way of shared medical record or fax. [facility] Reason for Consult and HPI Sarah Weathers is a 50 year old male who is referred to the gastroenterology clinic for evaluation of liver cirrhosis Patient denied alcohol IVD use, Tattoos/Piercings, intranasal cocaine or hx of blood transfusion prior to 1989. Denied taking Herbal medications. He denied family history of liver disease Patient denies jaundice, Ascites , confusion/ hepatic encephalopathy, reversal of day/night sleep patterns, hematemesis or melena. Patient has thrombocytopenia and splenomegaly. He also positive YAHAIRA Past Medical, Surgical, Family and Social Histories PAST MEDICAL HISTORY Diagnosis Date - Asthma - Thrombocytopenia (HCC) PAST SURGICAL HISTORY Procedure Laterality Date - HERNIA REPAIR HX History reviewed. No pertinent family history. Social History Tobacco Use - Smoking status: Never Smoker - Smokeless tobacco: Never Used Substance Use Topics - Alcohol use: Not Currently - Drug use: Not Currently Allergies AND Current Medications ALLERGIES No Known Allergies: Current Outpatient Medications Medication Sig - MULTI-VITAMIN ORAL - celecoxib (CELEBREX) 100 mg capsule Take 1 capsule by mouth twice daily. - FLOVENT HFA 110 mcg/actuation inhaler INHALE 2 (TWO) puffs BY MOUTH TWICE DAILY No current facility-administered medications for this visit. Review Of Systems Pertinent positives per HPI. All others reviewed and negative. General: Denies chills, sweats. Eyes: Denies irritation, discharge. Ears/Nose/Throat: Denies earache, ear discharge, tinnitus. Cardiovascular: Denies palpitations, dyspnea on exertion. Respiratory: Denies cough, dyspnea. Gastrointestinal: As per HPI Genitourinary: Denies hematuria, discharge. Musculoskeletal: Denies joint pain, joint swelling. Skin: Denies rash, itching. Neurologic: Denies weakness, paresthesias, seizures. Endocrine: Denies polydipsia, polyphagia. Heme/Lymphatic: Denies abnormal bruising, bleeding. Allergic/Immunologic: Denies urticaria, hay fever. Physical Exam BP 148/79 Pulse 72 Wt 92.1 kg (203 lb) BMI 27.53 kg/m? General appearance:well nourished, well hydrated, no acute distress Eyes External: conjunctivae and lids normal, No icterus Neck Neck: supple, no masses, trachea midline Respiratory Respiratory effort: no intercostal retractions or use of accessory muscles CTA b/l Cardiovascular Auscultation: no murmur, rub, or gallop Gastrointestinal Abdomen: soft, non-tender, no masses, bowel sounds normal Musculoskeletal RUE: no dolan erythema LUE: no dolan erythema LE: No edema Skin Inspection: no rashes, lesions, or ulcerations Neurologic No Asterixis Mental Status Exam Orientation: oriented to time, place, and person Labs and Imaging Previous work up includes: 10/30/2020 CTAP w/ IV/PO contrast-1. ?No evidence of intra-abdominal/intrapelvic lymphadenopathy. 2. ?Nodular hepatic contour compatible with cirrhosis. 3. ?Mild splenomegaly, trace pelvic ascites and small gastroesophageal varices compatible with portal hypertension. Component Latest Ref Rng AND Units 10/08/2020 10/08/2020 10/08/2020 12:03 PM 12:05 PM 12:06 PM WBC 3.70 - 11.00 k/uL 5.05 RBC 4.20 - 6.00 m/uL 4.93 Hemoglobin 13.0 - 17.0 g/dL 14.7 Hematocrit 39.0 - 51.0 % 43.7 MCV 80.0 - 100.0 fL 88.6 MCH 26.0 - 34.0 pG 29.8 MCHC 30.5 - 36.0 g/dL 33.6 RDW-CV 11.5 - 15.0 % 13.5 Platelet Count 150 - 400 k/uL 105 (L) MPV 9.0 - 12.7 fL 11.1 Neut% % 62.7 Abs Neut (ANC) 1.45 - 7.50 k/uL 3.15 Lymph% % 25.0 Abs Lymph 1.00 - 4.00 k/uL 1.26 Pierce% % 9.7 Abs Pierce <0.87 k/uL 0.49 Eosin% % 1.8 Abs Eosin <0.46 k/uL 0.09 Baso% % 0.8 Abs Baso <0.11 k/uL 0.04 Nucleated Reds 0 /100 WBC 0.0 Absolute nRBC <0.01 k/uL <0.01 Diff Type Auto Diff Protein, Total 6.3 - 8.0 g/dL 7.0 7.2 Albumin 3.9 - 4.9 g/dL 4.8 Calcium 8.5 - 10.2 mg/dL 9.7 Bilirubin, Total 0.2 - 1.3 mg/dL 0.9 Alkaline Phosphatase 38 - 113 U/L 82 AST 14 - 40 U/L 33 Glucose 74 - 99 mg/dL 103 (H) BUN 9 - 24 mg/dL 23 Creatinine 0.73 - 1.22 mg/dL 0.94 Sodium 136 - 144 mmol/L 137 Potassium 3.7 - 5.1 mmol/L 4.6 Chloride 97 - 105 mmol/L 102 CO2 22 - 30 mmol/L 27 Anion Gap 9 - 18 mmol/L 8 (L) ALT 10 - 54 U/L 30 eGFR- >60 eGFR-All Other Races . >60 Albumin 3.37 (more content not included)...NormalMer[facility] Health [facility] on [id number] (GASTAV) SARAH WEATHERS ([id number]) 1970 M Date Time Provider Department 12/02/20 TRISTAN SERRANO GASTSHAWN During your visit today, we recorded the following information about you: Keiry Pinedo [facility] 12/02/2020 10:45 AM Signed Procedure: Colonoscopy/EGD GEN SAIGE Date Scheduled: 01-15-21. Is the patient satisfied with this appointment? Yes Procedure Provider: MARY Prep instructions given to patient? Yes, Protocol: TIO GI prep order pending to Gastro physician? No Medication order for prep sent to ordering physician? No Is the patient on any blood thinners? No Is the patient diabetic? No Does the patient have a pacemaker/defibrillator? No Amie Ceron 12/02/2020 12:21 PM Signed ESR DONE Amie Ceron 12/02/2020 12:21 PM Signed Addended by: AMIE CERON on: 12/02/2020 12:21 PM Modules accepted: Orders Allergies As of Date: 12/02/2020 (No Known Allergies) Date Reviewed: 12/02/2020 Reviewed by: Pablo Parish LPN - Fully Assessed Reason for Visit: Outpatient Colonoscopy [482] Primary Visit Diagnosis:Malignant neoplasm of colon, unspecified part of colon (HCC) [C18.9] Other Visit Diagnoses:Cirrhosis of liver with ascites, unspecified hepatic cirrhosis type (HCC) [K74.60, R18.8] Portal hypertension (HCC) [K76.6] Esophageal varices without bleeding, unspecified esophageal varices type (HCC) [I85.00] Order(s):SURGICAL REQUEST - ELECTIVE (05/2020) [[id number]] Order #: [id number]: 1 Prescriptions as of 12/02/2020 Sig: POLYETHYLENE GLYCOL 3350 17 G* Use as directed for Miralax /* GATORADE SPORTS DRINK Use as directed for Miralax /* BISACODYL 5 MG TABLET Use as directed for Miralax /* MULTI-VITAMIN ORAL CELECOXIB 100 MG CAPSULE Take 1 capsule by mouth twice* FLOVENT HFA 110 MCG/ACTUATION* INHALE 2 (TWO) puffs BY MOUTH* Problem List As Of Date: 12/02/2020 (None) Encounter Status:Closed by KEIRY BLOCK on 12/02/20NormalCSumma HealthCeruloplasminon 91-23-2714Tlpodsyntpnyk30 mg/kPBejiga88-59JbxfntaeqOhiohealth Grant Medical CenterComment on above:Performed By: #### AHAVT, AHBCOT, HBSAG, ANAS, IGG, HIV12C, AAT, AHBSQ, AHCV1B, CERULO, SMTHS, MITOS ####[facility] [address] [place], [place] [phone]#### LKM ####[facility] [address] [place], [place] [phone] 40-13-3980Mgxoipfk [Mass/Vol]118.5 ng/jECdptih03.3-565.7CSumma HealthComment on above:Performed By: #### POCOVD #### [facility] [address] [place], [place] [address] ASOAJVX PHYSICALon [id number] PHYSICALHNO ID: [id number] Author: Tristan Serrano Service: ? Author Type: Physician Type: HANDP Filed: 12/07/2020 2:24 PM Note Text: Consultation requested by Dr. Dru Panda for an opinion regarding liver cirrhosis. My final recommendations will be communicated back to the requesting physician by way of shared medical record or fax. [facility] Reason for Consult and HPI Sarah Weathers is a 50 year old male who is referred to the gastroenterology clinic for evaluation of liver cirrhosis Patient denied alcohol IVD use, Tattoos/Piercings, intranasal cocaine or hx of blood transfusion prior to 1989. Denied taking Herbal medications. He denied family history of liver disease Patient denies jaundice, Ascites , confusion/ hepatic encephalopathy, reversal of day/night sleep patterns, hematemesis or melena. Patient has thrombocytopenia and splenomegaly. He also positive YAHAIRA Past Medical, Surgical, Family and Social Histories PAST MEDICAL HISTORY Diagnosis Date - Asthma - Thrombocytopenia (HCC) PAST SURGICAL HISTORY Procedure Laterality Date - HERNIA REPAIR HX History reviewed. No pertinent family history. Social History Tobacco Use - Smoking status: Never Smoker - Smokeless tobacco: Never Used Substance Use Topics - Alcohol use: Not Currently - Drug use: Not Currently Allergies AND Current Medications ALLERGIES No Known Allergies: Current Outpatient Medications Medication Sig - MULTI-VITAMIN ORAL - celecoxib (CELEBREX) 100 mg capsule Take 1 capsule by mouth twice daily. - FLOVENT HFA 110 mcg/actuation inhaler INHALE 2 (TWO) puffs BY MOUTH TWICE DAILY No current facility-administered medications for this visit. Review Of Systems Pertinent positives per HPI. All others reviewed and negative. General: Denies chills, sweats. Eyes: Denies irritation, discharge. Ears/Nose/Throat: Denies earache, ear discharge, tinnitus. Cardiovascular: Denies palpitations, dyspnea on exertion. Respiratory: Denies cough, dyspnea. Gastrointestinal: As per HPI Genitourinary: Denies hematuria, discharge. Musculoskeletal: Denies joint pain, joint swelling. Skin: Denies rash, itching. Neurologic: Denies weakness, paresthesias, seizures. Endocrine: Denies polydipsia, polyphagia. Heme/Lymphatic: Denies abnormal bruising, bleeding. Allergic/Immunologic: Denies urticaria, hay fever. Physical Exam BP 148/79 Pulse 72 Wt 92.1 kg (203 lb) BMI 27.53 kg/m? General appearance:well nourished, well hydrated, no acute distress Eyes External: conjunctivae and lids normal, No icterus Neck Neck: supple, no masses, trachea midline Respiratory Respiratory effort: no intercostal retractions or use of accessory muscles CTA b/l Cardiovascular Auscultation: no murmur, rub, or gallop Gastrointestinal Abdomen: soft, non-tender, no masses, bowel sounds normal Musculoskeletal RUE: no dolan erythema LUE: no dolan erythema LE: No edema Skin Inspection: no rashes, lesions, or ulcerations Neurologic No Asterixis Mental Status Exam Orientation: oriented to time, place, and person Labs and Imaging Previous work up includes: 10/30/2020 CTAP w/ IV/PO contrast-1. ?No evidence of intra-abdominal/intrapelvic lymphadenopathy. 2. ?Nodular hepatic contour compatible with cirrhosis. 3. ?Mild splenomegaly, trace pelvic ascites and small gastroesophageal varices compatible with portal hypertension. Component Latest Ref Rng AND Units 10/08/2020 10/08/2020 10/08/2020 12:03 PM 12:05 PM 12:06 PM WBC 3.70 - 11.00 k/uL 5.05 RBC 4.20 - 6.00 m/uL 4.93 Hemoglobin 13.0 - 17.0 g/dL 14.7 Hematocrit 39.0 - 51.0 % 43.7 MCV 80.0 - 100.0 fL 88.6 MCH 26.0 - 34.0 pG 29.8 MCHC 30.5 - 36.0 g/dL 33.6 RDW-CV 11.5 - 15.0 % 13.5 Platelet Count 150 - 400 k/uL 105 (L) MPV 9.0 - 12.7 fL 11.1 Neut% % 62.7 Abs Neut (ANC) 1.45 - 7.50 k/uL 3.15 Lymph% % 25.0 Abs Lymph 1.00 - 4.00 k/uL 1.26 Pierce% % 9.7 Abs Pierce <0.87 k/uL 0.49 Eosin% % 1.8 Abs Eosin <0.46 k/uL 0.09 Baso% % 0.8 Abs Baso <0.11 k/uL 0.04 Nucleated Reds 0 /100 WBC 0.0 Absolute nRBC <0.01 k/uL <0.01 Diff Type Auto Diff Protein, Total 6.3 - 8.0 g/dL 7.0 7.2 Albumin 3.9 - 4.9 g/dL 4.8 Calcium 8.5 - 10.2 mg/dL 9.7 Bilirubin, Total 0.2 - 1.3 mg/dL 0.9 Alkaline Phosphatase 38 - 113 U/L 82 AST 14 - 40 U/L 33 Glucose 74 - 99 mg/dL 103 (H) BUN 9 - 24 mg/dL 23 Creatinine 0.73 - 1.22 mg/dL 0.94 Sodium 136 - 144 mmol/L 137 Potassium 3.7 - 5.1 mmol/L 4.6 Chloride 97 - 105 mmol/L 102 CO2 22 - 30 mmol/L 27 Anion Gap 9 - 18 mmol/L 8 (L) ALT 10 - 54 U/L 30 eGFR- >60 eGFR-All Other Races . >60 Albumin 3.37 - 4.23 gm/dL 4.53 (H) Alpha 1 Globulin 0.18 - 0.31 gm/dL 0.18 Alpha 2 Globulin 0.52 - 0.97 gm/dL 0.55 Beta Globulin 0.84 - 1.36 gm/dL 0.89 Gamma Globulin 0.70 - 1.44 gm/dL 0.85 Interpretation (Prot Electro) SEE COMMENT M-Protein Location N/A M (more content not included)...NormalOhiohealth Grant Medical CenterHIV1p24 Ag +HIV12 Abon [id number] 12 Ag/AbNon-ReactiveNormalNon ReactiveCleveland Clinic Mentor Hospital on above:Performed By: #### AHAVT, AHBCOT, HBSAG, ANAS, IGG, HIV12C, AAT, AHBSQ, AHCV1B, CERULO, SMTHS, MITOS ####[facility] [place], [place] [phone]#### LKM ####[facility] [address] [place], [place] [phone]-5/2 Antibody NormalCleveland Clinic Mentor Hospital on above:Result Comment: Test Not Indicated Negative No evidence of HIV-1 or HIV-2 infection. Should recent infection be suspected, repeat testing may be considered 2-3 weeks after this draw. HIV Information: [place] Rev. Code 3701.243(E): This information has been disclosed to you from confidential records protected from disclosure by state law. You shall make no further disclosure of this information without the specific, written, and informed release of the individual to whom it pertains or as otherwise permitted by state law. A general authorization for the release of medical or other information is not sufficient for the purpose of the release of HIV test results or diagnoses. Performed By: #### AHAVT, AHBCOT, HBSAG, ANAS, IGG, HIV12C, AAT, AHBSQ, AHCV1B, CERULO, SMTHS, MITOS ####[facility] [place], [place] [phone]#### LKM ####[address] [place], [place] [phone] B Core Ab,Totalon 47-98-7853Dgw B Core Ab,Total NegativeNormalNegativeCleveland Clinic Mentor Hospital on above:Performed By: #### POCOVD #### [facility] [address] [place], [place] [address] Lqv C Ab IA w/Confon [id number] C Ab IANegativeNormal NegativeCleveland Clinic Mentor Hospital on above:Performed By: #### AHAVT, AHBCOT, HBSAG, ANAS, IGG, HIV12C, AAT, AHBSQ, AHCV1B, CERULO, SMTHS, MITOS ####[address] [phone]#### LKM ####[address] [place], [place] [phone] SurfaceAb,Quanton 46-16-1801VnhQ SurfaceAb,Quant<8.00Normal <8.00[facility] on above:Result Comment: NEGATIVE Performed By: #### POCOVD #### [place] [address] Lndyfsfhf A Ab Totalon 45-63-4512Zgiyqteid A Ab TotalNegativeNormal NegativeCleveland Clinic Mentor Hospital on above:Performed By: #### POCOVD #### [place] [address] Llfamebsv B Surf. Agon 58-32-1599Gbthdjxmz B Surf. AgNegativeNormal NegativeCleveland Clinic Mentor Hospital on above:Performed By: #### AHAVT, AHBCOT, HBSAG, ANAS, IGG, HIV12C, AAT, AHBSQ, AHCV1B, CERULO, SMTHS, MITOS ####[address] [phone]#### LKM ####[address] [place], [place] [phone] 54-35-5324QeW [Mass/Vol]888 mg/jTPcuznh278-7168YdvwunfevCleveland Clinic Mentor Hospital on above:Performed By: #### POCOVD #### [place] [address] Urwgq-Kid Micro Abson 29-79-8835Dxsbb-Kid Micro Abs<1:20Normal<1:20 [facility] on above:Result Comment: (NOTE) INTERPRETIVE INFORMATION: Eyvxn-Flffod-Wzgilnxfs Abs, IgG Liver-Kidney Microsome IgG antibody (anti-LKM), as detected by indirect immunofluorescent antibody (IFA) techniques, may be observed in patients with autoimmune hepatitis type 2 (AIH-2), AIH-2 associated with autoimmune tjyqivxfrjmymyoizn-elivztdbgzn-nzndvbbyqm dystrophy (APECED), viral hepatitis C or D, and some forms of drug-induced hepatitis. This IFA does not differentiate among the four types of LKM antibodies (LKM-1, LKM-2, LKM-3, and a fourth type that recognizes CY and CY antigens). Of these, anti-LKM-1 (cytochrome V757SJP9) IgG antibodies are considered specific for AIH-2. This test was developed and its performance characteristics determined by [facility]. It has not been cleared or approved by the [place] Food and Drug Administration. This test was performed in a CLIA certified laboratory and is intended for clinical purposes. Performed By: [facility] [address] [place] [address] Lawn Care Worker: ARIEL Hassanerformed By: #### AHAVT, AHBCOT, HBSAG, ANAS, IGG, HIV12C, AAT, AHBSQ, AHCV1B, CERULO, SMTHS, MITOS ####[address] [phone]#### LKM ####YZJVHqmdfx[address] [place], [place] [phone] Mitochondrial Ab Scron [id number] Ab ScrNegativeNormalNegative [facility] on above:Result Comment: Normal range : negative at a 1:20 serum dilution.Performed By: #### AHAVT, AHBCOT, HBSAG, ANAS, IGG, HIV12C, AAT, AHBSQ, AHCV1B, CERULO, SMTHS, MITOS ####[address] [phone]#### LKM ####[facility] [address] [place], [place] [phone] Muscle Ab Scron 63-00-0016Gnqliv Muscle Ab ScrPositiveCritically abnormalNegativeOhiohealth Grant Medical CenterComment on above:Result Comment: Normal range : negative at a 1:20 serum dilution.Performed By: #### AHAVT, AHBCOT, HBSAG, ANAS, IGG, HIV12C, AAT, AHBSQ, AHCV1B, CERULO, SMTHS, MITOS ####[facility] [address] [place], [place] [phone]#### LKM ####[address]TPW[address]euq[address] [place], [place] [phone] 80-91-6974ESOZAujsvn Visit (RHEUMN) SARAH WEATHERS ([id number]) 1970 M Date Time Provider Department 11/25/20 2:00 PM ALLA GARCIA During your visit today, we recorded the following information about you: Temperature Pulse Blood pressure Weight 97.5 degrees 73/minute 148/83 92.9 kg Height 1.829 m Alla Garcia MD, PhD 11/25/2020 10:48 PM Signed RHEUMATOLOGY OUTPATIENT VISIT DATE November 25, 2020 CC: Referred for uveitis Review of history: Sarah Weathers is a 50 year old gentleman with PMHx notable for liver cirrhosis (new diagnosis based on CT A/P 10/30/2020, unclear etiology), thrombocytopenia ~100k, asthma and uveitis. He has been referred to Rheumatology for evaluation of uveitis. He was recently evaluated by Hematology (Dr. Dru Panda) for thrombocytopenia. All the work up including B12, folate, paraproteins, HIV, Hep studies has been negative. Per hematology, his thrombocytopenia is likely related to underlying cirrhosis. He was also referred to Hepatology for further work up of cause of liver cirrhosis, which he is due to see next week. Denies significant alcohol use. In regards to uveitis: Started 2 years ago, was losing vision in L eye/vision getting cloudy, had redness and watering of eye as well as pain with full eye movements - NO photophobia. Went to urgent care, diagnosed as eye infection. But treatment did not work, later seen by Ophthalmology, and diagnosed with uveitis (SHANEL Bonilla). He does not remember the exact type (anterior vs panuveitis). but he was treated with 'eye drops'seemingly steroid, abx and ultimately mydriatic when saw ophtho. Also, got 'some' oral pred. His symptoms resolved. Then symptoms came back 1 year later, same symptoms, treated again same way (longer taper of 'eye drops'), but no oral steroids. Complete resolution of symptoms. No recurrence of uveitis since. 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 Treated with eye drops. Also reports recurrent abdominal pain since he was less than 10 years old, occurred once a year, very severe in whole abdomen. Lasting several hours. No association with eating. Not associated with diarrhea or bloody stools. Abdomen wasn't sore to touch. Pain was achy in character. No h/o renal stones. Never got diagnosed with a cause. He has not had this pain since 2018. Has been taking Naproxen 220 mg BID for 15 years. No joint pains. No back pain. No back/joint AM stiffness. No rashes, except occasional eczema on his legs for 'years' No SOB/chest pain/cough/sweliings or lumps on body. No chronic diarrhea/blood in stools. 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 RHEUMATOLOGIC ROS: (-) Weight Loss, (-) Fatigue, (-) Fever, (-) Headache, (-) Scalp Tenderness, (-) Jaw Claudication, (+) Oral ulcers occasionally, (-) Epistaxis, (-) Dry Eyes, (-) Dry Mouth, (-) Rash, (-) Photosensitivity, (-), Skin Ulcers, (-) Purpura/Petechiae, (-) Skin Tightening, (-) Pleurisy, (-) Pericarditis/Pericardial effusion, (-) Back Pain, (-) Raynaud's, (-) DVT/PE Hx: (+) Asthma, (-) Chronic Sinusitis, (-) Psoriasis Family history: No rheumatologic disorders Allergies: ALLERGIES No Known Allergies Medications: Current outpatient prescriptions: Current Outpatient Medications on File Prior to Visit Medication Sig - FLOVENT HFA 110 mcg/actuation inhaler INHALE 2 (TWO) puffs BY MOUTH TWICE DAILY No current facility-administered medications on file prior to visit. No outpatient medications have been marked as taking for the 11/25/20 encounter (Appointment) with Alla Garcia. Social History: Social History Tobacco Use - Smoking status: Never Smoker - Smokeless tobacco: Never Used Substance Use Topics - Alcohol use: 1 drink a month - Drug use: Not Currently Family History: No family history on file. Past Surgical History: PAST SURGICAL HISTORY Procedure Laterality Date - HERNIA REPAIR HX Review of Systems: Answers for HPI/ROS submitted by the patient on 11/23/2020 Fever : No Recent Unintentional Weight Change: No Eye Pain: No Eye Redness: No Vision Disturbance: No Eye Dryness: No Nose Bleeds: No Sores in your Mouth: No Trouble Swallowing: No Dry Mouth: No Chest Pain: No Leg Swelling: No A Cough: No Shortness of Breath: No Pain with Breathing: No Heartburn: No Abdominal Pain: No Diarrhea: No Black Tarry Stools: No Blood in Urine: No Pain or Burning with Urination: No Joint Pain or Stiffness: No Muscle Weakness: No Muscle Aches: No Joint Swelling: No Morning Stiffness in Joints: No A Rash: No Skin Color Changes: No Hair Loss: No Nail Changes: No Headaches: No Numbness: No Memory Loss: No Swollen Glands: No REVIEW OF SYSTEMS General- No fever/chills/malaise/unintentional weight loss/lo (more content not included)...Normal[facility] AUTO DIFFon [id number] (Bld) [#/Vol]0.0 103/ulNormal0.0-0.1The [facility] HospitalComment on above: Performed By: #### CBC #### [facility] [address] [place] [id number] Blaise KarenBasophils/100 WBC (Bld)0.4 %Normal0.2-2.0The [facility] Comment on above:Performed By: #### CBC #### [facility] [address] [place], [place] [phone] Blaise KarenEosinophils (Bld) [#/Vol]0.1 103/ulNormal0.0-0.7The [facility] HospitalComment on above:Performed By: #### CBC #### [facility] [address] [place], [place] [phone] Blaise KarenEosinophils/100 WBC (Bld)1.0 %Normal0.9-7.0The [facility] Comment on above:Performed By: #### CBC #### [facility] [address] [place] [address] Blaise KarenErythrocyte distribution width (RBC) [Ratio]13.6 %Frjkls90.0-15.0The [facility] HospitalComment on above:Performed By: #### CBC #### [facility] [address] [place] [address] Blaise KarenHematocrit (Bld) [Volume fraction]45.2 %Zmmhci45.0-54.0The [facility] HospitalComment on above:Performed By: #### CBC #### [facility] [address] [place] [address] Blaise KarenHemoglobin (Bld) [Mass/Vol]14.7 g/zFXnbpkp62.0-18.0The [facility] HospitalComment on above:Performed By: #### CBC #### [facility] [address] [place] [address] Blaise KarenIG #0.04 10e3/ulCritically high0.00-0.03The [facility] HospitalComment on above:Performed By: #### CBC #### [facility] [address] [place] [address] Blaise KarenIG %0.8 %Critically high0.0-0.5The [facility] HospitalComment on above:Performed By: #### CBC #### [facility] [address] [place] [address] Blaise KarenLymphocytes (Bld) [#/Vol]1.1 103/ulCritically low1.2-3.8The [facility] HospitalComment on above:Performed By: #### CBC #### [facility] [address] [place] [id number] Blaise KarenLymphocytes/100 WBC (Bld)21.3 %Jugvcs28.5-60.0[facility] Comment on above:Performed By: #### CBC #### [facility] [address] [place], [place] [phone] Blaise KarenMANUAL DIFF REQNONormalThe [facility] HospitalComment on above: Performed By: #### CBC #### [facility] [address] [place] [address] Blaise KarenMCH (RBC) [Entitic mass]29.9 urVmaicf48.9-34.0[facility] Comment on above:Performed By: #### CBC #### [facility] [address] [place] [address] Blaise KarenMCHC (RBC) [Mass/Vol]32.5 g/xICdtogq30.9-35.2[facility] Comment on above:Performed By: #### CBC #### [facility] [address] [place] [address] Blaise KarenMCV (RBC) [Entitic vol]92.1 qPSrwkvx76.0-94.0[facility] Comment on above:Performed By: #### CBC #### [facility] [address] [place] [address] Blaise KarenMonocytes (Bld) [#/Vol]0.5 103/ulNormal0.3-0.8ThOur [facility] of [facility] Comment on above:Performed By: #### CBC #### [facility] [address] [place] [address] Blaise KarenMonocytes/100 WBC (Bld)10.0 %Normal1.7-12.0[facility] Comment on above:Performed By: #### CBC #### [facility] [address] [place] [address] Blaise KarenNeutrophils (Bld) [#/Vol]3.4 103/ulNormal1.4-6.5The [facility] HospitalComment on above:Performed By: #### CBC #### [facility] [address] [place] [address] Blaise KarenNeutrophils/100 WBC (Bld)66.5 %Vzofog67.0-75.0[facility] Comment on above:Performed By: #### CBC #### [facility] [address] [place] [address] Blaise KarenPlatelet mean volume (Bld) [Entitic vol]12.0 fLNormal9.5-13.5The [facility] HospitalComment on above:Performed By: #### CBC #### [facility] [address] [place] [address] Blaise KarenPlatelets (Bld) [#/Vol]108 103/ulCritically xgj273-262Zop [facility] HospitalComment on above:Performed By: #### CBC #### [facility] [address] [place] [address] Blaise KarenRBC (Bld) [#/Vol]4.91 106/ulNormal4.70-6.10The [facility] Comment on above:Performed By: #### CBC #### [facility] [address] [place] [address] Blaise KarenWBC (Bld) [#/Vol]5.1 103/ulNormal4.0-11.0[facility] Comment on above:Performed By: #### CBC #### [facility] [address] [place] [address] Blaise KarenCBC AUTO DIFFon 15-60-0582Ywqpmwpyt (Bld) [#/Vol]0.0 103/ulNormal 0.0-0.1[facility] HospitalComment on above:Performed By: #### CBC, PERSMR #### [facility] [address] [place], [place] [id number] Blaise KarenBasophils/100 WBC (Bld)0.4 %Normal0.2-2.0The [facility] Comment on above:Performed By: #### CBC, PERSMR #### [facility] [address] [place] [address] Blaise KarenEosinophils (Bld) [#/Vol]0.1 103/ulNormal0.0-0.7The [facility] HospitalComment on above:Performed By: #### CBC, PERSMR #### [facility] [address] [place] [address] Blaise KarenEosinophils/100 WBC (Bld)1.9 %Normal0.9-7.0The [facility] Comment on above:Performed By: #### CBC, PERSMR #### [facility] [address] [place] [address] Blaise KarenErythrocyte distribution width (RBC) [Ratio]13.5 %Oifhpi86.0-15.0The [facility] HospitalComment on above:Performed By: #### CBC, PERSMR #### [facility] [address] [place] [address] Blaise KarenHematocrit (Bld) [Volume fraction]43.4 %Npudav71.0-54.0The [facility] HospitalComment on above:Performed By: #### CBC, PERSMR #### [facility] [address] [place] [address] Blaise KarenHemoglobin (Bld) [Mass/Vol]14.4 g/bNLcykqd45.0-18.0The [facility] HospitalComment on above:Performed By: #### CBC, PERSMR #### [facility] [address] [place] [address] Balise KarenIG #0.03 10e3/ulNormal0.00-0.03The [facility] HospitalComment on above:Performed By: #### CBC, PERSMR #### [facility] [address] [place] [address] Blaise KarenIG %0.6 %Critically high0.0-0.5The [facility] HospitalComment on above:Performed By: #### CBC, PERSMR #### [facility] [address] [place] [address] Blaise KarenLymphocytes (Bld) [#/Vol]1.1 103/ulCritically low1.2-3.8The [facility] HospitalComment on above:Performed By: #### CBC, PERSMR #### [facility] [address] [place] [address] Blaise KarenLymphocytes/100 WBC (Bld)21.3 %Yeqfit88.5-60.0[facility] Comment on above:Performed By: #### CBC, PERSMR #### [facility] [address] [place] [address] Blaise KarenMANUAL DIFF REQNONormalThe [facility] HospitalComment on above: Performed By: #### CBC, PERSMR #### [facility] [address] [place] [address] Blaise KarenMCH (RBC) [Entitic mass]30.5 mcJojupy53.9-34.0[facility] Comment on above:Performed By: #### CBC, PERSMR #### [facility] [address] [place] [address] Blaise KarenMCHC (RBC) [Mass/Vol]33.2 g/wUMatyxx68.9-35.2[facility] Comment on above:Performed By: #### CBC, PERSMR #### [facility] [address] [place] [address] Blaise KarenMCV (RBC) [Entitic vol]91.9 qZXtvhat74.0-94.0[facility] Comment on above:Performed By: #### CBC, PERSMR #### [facility] [address] [place] [address] Blaise KarenMonocytes (Bld) [#/Vol]0.4 103/ulNormal0.3-0.8ThOur [facility] of [facility] Comment on above:Performed By: #### CBC, PERSMR #### [facility] [address] [address] Blaise KarenMonocytes/100 WBC (Bld)7.9 %Normal1.7-12.0[facility] Comment on above:Performed By: #### CBC, PERSMR #### [facility] [address] [place] [address] Blaise KarenNeutrophils (Bld) [#/Vol]3.6 103/ulNormal1.4-6.5The [facility] HospitalComment on above:Performed By: #### CBC, PERSMR #### [facility] [address] [place] [address] Blaise KarenNeutrophils/100 WBC (Bld)67.9 %Brccfs67.0-75.0[facility] Comment on above:Performed By: #### CBC, PERSMR #### [facility] [address] [place] [address] Blaise KarenPlatelet mean volume (Bld) [Entitic vol]11.2 fLNormal9.5-13.5The [facility] HospitalComment on above:Performed By: #### CBC, PERSMR #### [facility] [address] [place] [address] Blaise KarenPlatelets (Bld) [#/Vol]94 103/ulCritically ddg403-435Ieg [facility] HospitalComment on above:Result Comment: SLIDE REVIEWED: NO PLATELET CLUMPS SEEN. PLATELET COUNT VERIFIEDPerformed By: #### CBC, PERSMR #### [facility] [address] [place] [address] Blaise KarenRBC (Bld) [#/Vol]4.72 106/ulNormal4.70-6.10The [facility] Comment on above:Performed By: #### CBC, PERSMR #### [facility] [address] [place] [address] Blaise KarenWBC (Bld) [#/Vol]5.3 103/ulNormal4.0-11.0[facility] Comment on above:Performed By: #### CBC, PERSMR #### [facility] [address] [place], [place] [address] Blaise KarenPERIPHERAL SMEARon 44-58-1969Evzrqxyovbo Cyto stain Nom (Cvx/Vag) [ID]DR. LISA PATELSelect Medical Specialty Hospital - ColumbusComment on above:Result Comment: Isolated thrombocytopenia of uncertain etiology. Rule out refractory thrombocytopenia.Performed By: #### CBC, PERSMR #### [facility] [address] [place], [place] [address] Blaise Marks VENOUS DOPPLER R Maira [id number] Coag (Bld) [Relative time] EXAMINATION: US VENOUS DOPPLER R ARM HISTORY: Pain in right arm COMPARISON: No relevant comparison available. FINDINGS: REGION: Right upper extremity THROMBI: None. COMPRESSIBILITY: Normal compressibility. FLOW: Normal waveform and antegrade flow between 5 and 20 cm/s. OTHER: None. IMPRESSION: 1. No deep vein thrombus within the right upper extremity. Electronically authenticated by: SARAH SUAREZ Date: 2020-03-22 16:06NoUniversity Hospitals [facility] HospitalCoding Summary.on [id number] Summary.CODING DATE: 11/16/2018 FINAL [facility] STATUS: Home (Routine DC) PAYOR: Commercial Insurance ADMIT DX: REASON FOR VISIT DX: H57.12 Ocular pain, left eye FINAL DX: PRINCIPAL: H20.9 Unspecified iridocyclitis SECONDARY: PROCEDURES DOCTOR NAME DATE NOTE: The code number assigned matches the documented diagnosis and / or procedure in the patient's chart. However, the narrative phrase printed from the coding software may appear abbreviated, or result in slightly different terminology. Coded By: Samantha Villanueva Date Saved: 11/16/2018 02:48 pmNormalHolmes County Joel [facility]rene [facility] Hospital CenterED Note-Physicianon [id number] Note-PhysicianBasic Information Time Seen: Homero Roper PA-C 11/05/2018 14:08 Chief Complaint Pt. states L eye infection. On abx ointment, but is getting worse. States vision is affected by this. Was dx with infection on 10/25. Placed on abx ointment yesterday. History of Present Illness Patient presents with an injected left eye. Two weeks ago he stated his eye became watery and irritated. He was seen at urgent care in [place] where he was prescribed tobramycin which he took for one week and improved his symptoms. He began wearing his contact lens again as symptoms improved. One day after stopping tobramycin his symptoms returned and vision in his left eye became cloudy. He followed up with his PCP who prescribed erythromycin which he stopped taking after one day with no improvement. Today he has mild pain when moving his eye laterally or medially and remains watery and irritated. He does not take any medications regularly or have any significant medical history. Review of Systems Constitutional: no fever, no chills, no sweats, no weakness Skin: no Jaundice, no rash, no lesions, nopetechiae Eye: left eye pain, watery. irritated, decreased visual acuity Respiratory: no shortness of breath, no cough, Cardiovascular: no chest pain, no palpitations, no edema Neurologic: no headache, no dizziness, Additional ROS info: Except as noted in the above Review of Systems and in the History of Present Illness all other systems have been reviewed and are negative or noncontributory. Physical Exam Vitals & Measurements T: 36.6 ?C (Oral) HR: 73(Peripheral) RR: 16 BP: 173/93 SpO2: 97% HT: 183 cm WT: 107 kg BMI: 31.95 Nurses's note reviewed and patient is not hypoxic. General: The patient appears well and in no apparent distress. Patient is resting comfortably on cart. Skin: Warm, dry, no pallor noted. Head: Normocephalic, atraumatic Neck: Supple, trachea mid-line, no tenderness, no lymphadenopathy Eye: Normal extraocular motion, pupils were equal round and reactive to light, the patient had somepain with extraocular motion. The patient had Alcaine applied to the bilateral eyes, fluorescein dye was instilled. The patient had exam with slit lamp that did not show evidence of uptake at the cornea at all. The patient had no involvement over the pupil. There was evidence of severe conjunctivalinjection. The patient's eyelid was everted and there was no evidence of foreign body. The patient had no swelling of the upper/lower eyelid. No evidence of hyphema, dendritic lesion or Venice sign. No corneal ulcerations. No evidence of preseptal cellulitis or orbital cellulitis. There was a mild h aziness to the cornea. Extraocular pressures were 22 and 21. Ears, Nose, Mouth, and Throat: oral mucosa is moist Respiratory: Patient is in no distress Neurological: A&O x4, normal speech Psychiatric: Cooperative Medical Decision Making The patient's case was discussed with Dr. Coker who advised TobraDex solution with the strict instructions that if there is any infectious process to come back to the ER immediately as pain, light sensitivity, redness and drainage will be worsened drastically and quickly. The patient understands and is full agreement with this. He feels, with the treatment plan. The patient had visual acuity of the left eye after tetracaine did not seem to improve. He did not get a lot of pain relief with tetracaine. Assessment/Plan Uveitis Medications Administered Given fluorescein ophthalmic 1 mg test, 1 mg, OPTH Tetracaine 0.5% Soln-Opth, 2 drop(s), Eye-Both Disposition Plan Patient Discharge Condition Stable Discharge Disposition Discharged home Discharge Prescription List Prescriptions Tobradex 0.1%-0.3% Susp-Opth, 1 drop(s), OPTH, [id number] Follow-up With When Contact Information Jefe Coker In 3 days 11/08/2018 EST [facility] [address] [place] [address]- Business (1) Additional Instructions: wednesday morning patient to call at 9am Michelle GALEAS In 3 days 11/08/[address] [facility] [address] [place] [address]- Business (1) Additional Instructions: Patient Education Uveitis Attestation The patient's care was supervised by Dr. Bautista including history, physical, medical decision making, and disposition. Teaching-Supervisory Addendum-Brief I participated in the following activities of this patients care: the medical history. I personally performed: supervision of the patient's care, the medical history, the physical exam, the medical decision making. The case was discussed with: the physician assistant director of plant operations, Homero Roper PA-C. Procedures: I directly supervised the entire procedure. Evaluation and management service: I agree with the evaluation and management decisions made in this patient's care. Results interpretation: I agree with the study interpretation in this patient's care, I agree with the documentation of the study interpretation. Problem List/Past Medical History Ongoing No qualifying data Historical No qualifying data Medications Inpatient No active inpatient medications Home Tobradex 0.1%-0.3% Susp-Opth, 1 drop(s), OPTH, [id number] Allergies No Known Medication Allergies Social History Alcohol - Denies Alcohol Use, 11/05/2018 Substance Abuse - Denies Substance Abuse, 11/05/2018 Tobacco - Denies Tobacco Use, 11/05/2018 Lab Results No qualifying data available. Diagnostic Results No qualifying data available.[facility] Result Comment: Electronically Signed By: Elvis Simmons\\.br\\Electronically Co- Signed By: Homero Roper PA-C\\.br\\Date and Time Co-Signed: 11/05/18 15:19 EST\\.br\\Electronically Co-Signed By: Adriel Juarez M.D.\\.br\\Date and Time Co-Signed: 11/06/18 07:55 ESTED Clinical Summaryon [id number] Clinical Summary [place] [address] ED Clinical Summary Person Information Name: SARAH WEATHERS [facility] Age: 48 Years : 1970 12:00 AM Sex: Male Language: Polish PCP: Michelle GALEAS CNP Marital Status: Single Visit Id: Visit Reason: Eye problem; LEFT EYE SWELLING Speciality: Acuity: 5 Enc Type: Emergency Med Service: Emergency Arrival: 11/05/2018 1:57 PM Discharge: 11/05/2018 3:13 PM LOS: 000 01:16 Checkin: 11/05/2018 1:57 PM Checkout: 11/05/2018 3:13 PM Dispo Type: Home (Routine DC) EVENTS: Event Name Event Status Request Date/Time Start Date/Time Complete Date/Time Arrive Complete 11/05/2018 1:57 PM 11/05/2018 1:57 PM 11/05/2018 1:57 PM Document Home Meds Request 11/05/2018 1:57 PM Triage Complete 11/05/2018 1:57 PM 11/05/2018 2:05 PM 11/05/2018 2:05 PM Bed Assign Complete 11/05/2018 2:05 PM 11/05/2018 2:05 PM 11/05/2018 2:[address] Exam Complete 11/05/2018 2:05 PM 11/05/2018 2:08 PM 11/05/2018 2:08 PM RN Exam Complete 11/05/2018 2:05 PM 11/05/2018 2:18 PM 11/05/2018 2:18 PM Registration Complete 11/05/2018 2:08 PM 11/05/2018 2:36 PM 11/05/2018 2:36 PM Meds Admin Complete 11/05/2018 2:17 PM 11/05/2018 2:[address] Exam Complete 11/05/2018 2:22 PM 11/05/2018 2:22 PM 11/05/2018 2:22 PM Reg Complete Request 11/05/2018 2:36 PM Discharge Complete 11/05/2018 2:56 PM 11/05/2018 3:13 PM 11/05/2018 3:13 PM Transfer Complete 11/05/2018 3:13 PM 11/05/2018 3:13 PM 11/05/2018 3:13 PM ADDRESS: [address] [address] [address] [facility] [id number] [facility] DOC NOTES: MEDICAL INFORMATION: Prescriptions Given: Prescription Display dexamethasone-tobramycin ophthalmic (Tobradex 0.1%-0.3% Susp-Opth) 1 drop(s), OPTH, [id number], 5 mL, Refill(s) 0 PATIENT EDUCATION INFORMATION: Instructions: Uveitis Follow up: With: Address: When: Jefe Coker [facility] [address], [address], [address] [place] [address] Business (1) In 3 days 11/08/2018 Comments: wednesday morning patient to call at 9am With: Address: When: Michelle GALEAS [address] [place] [address] Business (1) In 3 days 11/08/2018 DIAGNOSIS: [facility]itisNormal[facility] CenterED Patient Education Noteon [id number] Patient Education NoteOphthalmology Uveitis The uveal tract (uvea) is a layer of the eye made up of three structures: ? The choroid - a layer containing the eye's blood vessels located between the outer white part of the eyeball (sclera) and the inner layer (retina). ? The iris - the colored portion of the eye. ? The ciliary body - a area of muscle at the base of the iris that helps focus the lens. Uveitis happens when any or all portions of the uveal tract become inflamed. ? Iritis is when the iris becomes inflamed. It is the most common form of uveitis. It is extremely important to treat iritis early, as it may lead to internal eye damage causing scarring or diseases such as glaucoma. Some people have only one attack of iritis (in one or both eyes) in their lifetime, while others may get it many times. ? Pars planitis is when the ciliary body becomes inflamed. ? Choroiditis is when the choroid layer becomes inflamed. If the inflammation also involves the retina, it is called chorioretinitis. ? Panuveitis is when inflammation affects all of the structures of the uveal tract. CAUSES ? Diseases where the body's immune system attacks tissues within your own body (autoimmune diseases). ? Infections (tuberculosis, gonorrhea, fungus infections, Lyme disease, infection of the lining of the heart). ? Trauma or injury. ? Eye diseases (acute glaucoma and others). ? Inflammation from other parts of the uveal track. ? Severe eye infections. ? Other rare diseases. SYMPTOMS Iritis ? Eye pain or aching. ? Light sensitivity. ? Loss of sight or blurred vision. ? Redness of the eye. This is often accompanied by a ring of redness around the outside of the cornea or clear covering at the front of the eye (ciliary flush). ? Excessive tearing of the eye(s). ? A small pupil that does not enlarge in the dark and stays smaller than the other eye's pupil. ? A whitish area that obscures the lower part of the colored iris. Sometimes this is visible when looking at the eye. Since iritis causes the eye to become red, it is often confused with a much less dangerous form of pink eye or conjunctivitis. One of the most important symptoms is sensitivity to light. Anytime there is redness, discomfort in the eye(s) and extreme light sensitivity, it is extremely important tosee an public address system operator as soon as possible. Pars Planitis ? Mild, progressive drop in vision. ? Floating spots in the field of vision in front of the eye. ? Development of a cataract. Choroiditis ? May have no symptoms. ? Progressive drop in vision. ? Loss of vision in an isolated area of peripheral vision (scotoma) or to the side. ? Sore, aching eye. TREATMENT Iritis ? Corticosteroid eye drops and dilating agent eye drops are often given. Corticosteroid eye drops are used to decrease inflammation. Dilating drops help to prevent scarring of the iris and the risk of the iris becoming stuck to the front surface of the lens. Follow your caregivers exact instructions on taking and stopping corticosteroid medications (drops or pills). ? Sometimes, the iritis will be so severe that it will not respond to commonly used medications. Ifthis happens, it may be necessary to use steroid injections. The injections are given under the eye's outer surface. Sometimes oral medications are given. Treatment used for iritis is usually made john individual basis. Pars Planitis ? If mild, no treatment may be required ? Corticosteroids are usually given orally or for severe cases, injections are given under the surface of the eye. Choroiditis ? If associated with an underlying disease, the disease itself is treated. ? Corticosteroids are usually administered by mouth (orally). ? Corticosteroid injections or other medicines specific are given to treat the cause of infection or inflammation. These injections are given into the interior cavity of the eye (intravitreal injection). ? If caused by a parasite or worm that can be seen by the ophthalmologists, laser treatments may beused to kill the parasite. Panuveitis ? Treatment depends upon the cause and severity of the inflammation. It may consist of any one, or a combination of the treatments outlined above. HOME CARE INSTRUCTIONS Your caregiver will give specific instructions regarding the use of eye medications or other medications. Follow all instructions in both taking and stopping the medications. SEEK IMMEDIATE MEDICAL CARE IF: ? You have redness of one or both eyes. ? You experience a great deal of light sensitivity. ? You have pain or aching in either eye. ? You notice a drop in vision in either eye. MAKE SURE YOU: ? Understand these instructions. ? Will watch your condition. ? Will get help right away if you are not doing well or get worse. Document Released: 01/07/2010 Document Revised: 01/02/2013 Document Reviewed: 01/07/2010 ExitCare? Patient Information ?2014 [employer]. This information is not intended to replace advice given to you by your health care provider. Make sure you discuss any questions you have with yourhealth care provider.[facility] Patient Summaryon [id number] Patient Summary [address] [address] Patient Discharge Instructions Person Information Name: SARAH WEATHERS Age: 48 Years Arrival Date: 11/05/2018 1:57 PM Discharge Diagnosis: Uveitis Primary Care Physician: Michelle GALEAS CNP Provider Information Primary Provider: Adriel Juarez M.D. Advanced Pool Installer:Homero Roper PA-C The exam and treatment you received in the Emergency Department were for an urgent problem and are not intended as complete care. It is important that you follow up with a doctor, nurse practitioner,or physician?s assistant director of plant operations for ongoing care. If your symptoms become worse or you do not improve as expected and you are unable to reach your usual health care provider, you should return to the Emergency Department. We are available 24 hours a day. SARAH WEATHERS has been given the following list of patient education materials, prescriptions and follow-up instructions: Follow-up Instructions: With: Address: When: Jefe Coker [facility] [address], [address], [address] [place] [address] Business (1) In 3 days 11/08/2018 Comments: wednesday morning patient to call at 9am With: Address: When: Michelle GALEAS [address] [place] [address] Business (1) In 3 days 11/08/2018 In the event that this physician does not participate in your insurance network, please consult with your insurance company to find a nearby participating provider. Patient Education Materials: Uveitis A MESSAGE TO ALL PATIENTS REGARDING OPIOIDS PRESCRIPTION OPIOIDS: WHAT YOU NEED TO KNOW Prescription opioids can be used to help relieve yeskidfe-ve-vqmjsy pain and are often prescribed following a surgery or injury, or for certain health conditions. These medications can be an important part of the treatment but also come with serious risks. It is important to work with your healthcare provider to make sure you are getting the safest, most effective care. WHAT ARE THE RISKS AND SIDE EFFECTS OF OPIOID USE? Prescription opioids carry serious risks of addiction and overdose, especially with prolonged use. An opioid overdose, often marked by slowed breathing, can cause sudden . The use of prescription opioids can have a number of side effects as well, even when taken as directed: ? Tolerance?meaning you might need to take more of the medication for the same pain relief ? Physical dependence?meaning you have symptoms of withdrawal when a medication is stopped ? Increased sensitivity to pain ? Constipation ? Nausea, vomiting, and dry mouth ? Sleepiness and dizziness ? Confusion ? Depression ? Low levels of testosterone that can result in lower sex drive, energy, and strength ? Itching and sweating RISKS ARE GREATER WITH: ? History of drug misuse, substance use disorder, or overdose ? Mental health conditions (such as depression or anxiety) ? Sleep apnea ? Older age (65 years and older) ? Avoid alcohol while taking prescription opioids. Also, unless specifically advised by your health care provider, medications to avoid include: ? Benzodiazepines (such as Xanax or Valium) ? Muscle relaxants (such as Soma or Flexeril) ? Hypnotics (such as Ambien or Lunesta) ? Other prescription opioids KNOW YOUR OPTIONS Talk to your health care provider about ways to manage your pain that don?t involve prescription opioids. Some of these options may actually work better and have fewer risks and side effects. Optionsmay include: ? Pain relievers such as acetaminophen, ibuprofen, and naproxen ? Some medication that are also used for depression or seizures ? Physical therapy and exercise ? Cognitive behavioral therapy, a psychological, goal-directed approach, in which patients learn how to modify physical, behavioral, and emotional triggers of pain and stress. IF YOU ARE PRESCRIBED OPIOIDS FOR PAIN: ? Never take opioids in greater amounts or more often than prescribed. ? Follow up with your primary health care provider. o Work together to create a plan on how to manage your pain. o Talk about ways to help manage your pain that don?t involve prescription opioids. o Talk about any and all concerns and side effects. ? Help prevent misuse and abuse o Never sell or share prescription opioids. o Never use another person?s prescription opioids. ? Store prescription opioids in a secure place and out of reach of others (this may include visitors, children, friends, and family). ? Safely dispose of unused prescription opioids: Find your community drug take- back program or yourpharmacy mail-back program, or flush them down the toilet, following guidance from the Food and Drug Administration (www.fda.gov/Drugs/ResourcesForYou). ? Visit www.cdc.gov/drugoverdose to learn about the risks of opioids abuse and overdose. ? If you believe you may be struggling with addiction, tell your health adult care provider and ask for guidance or call [facility]S National Helpline at 4-118-461-LOBJ. k Source: US Department of Health and Human Services/Center for Disease Control & Prevention [facility] Medications Given: Medication Dose Route fluorescein ophthalmic 1.00 mg OPTH tetracaine ophthalmic 2.00 drop(s) Eye-Both Medication Information: New Medications Printed Prescriptions dexamethasone-tobramycin ophthalmic (Tobradex 0.1%-0.3% Susp-Opth) 1 Drops Ophthalmic every 1 hour while awake. Refills: 0. Comment: Pharmacy Information: Thank you for choosing [facility] Patient Education Materials: Uveitis The uveal tract (uvea) is a layer of the eye made up of three structures: ? The choroid - a layer containing the eye's blood vessels located between the outer white part of the eyeball (sclera) and the inner layer (retina). ? The iris - the colored portion of the eye. ? The ciliary body - a area of muscle at the base of the iris that helps focus the lens. Uveitis happens when any or all portions of the uveal tract become inflamed. ? Iritis is when the iris becomes inflamed. It is the most common form of uveitis. It is extremely important to treat iritis early, as it may lead to internal eye damage causing scarring or diseases such as glaucoma. Some people have only one attack of iritis (in one or both eyes) in their lifetime, while others may get it many times. ? Pars planitis is when the ciliary body becomes inflamed. ? Choroiditis is when the choroid layer becomes inflamed. If the inflammation also involves the retina, it is called chorioretinitis. ? Panuveitis is when inflammation affects all of the structures of the uveal tract. CAUSES ? Diseases where the body's immune system attacks tissues within your own body (autoimmune diseases). ? Infections (tuberculosis, gonorrhea, fungus infections, Lyme disease, infection of the lining of the heart). ? Trauma or injury. ? Eye diseases (acute glaucoma and others). ? Inflammation from other parts of the uveal track. ? Severe eye infections. ? Other rare diseases. SYMPTOMS Iritis ? Eye pain or aching. ? Light sensitivity. ? Loss of sight or blurred vision. ? Redness of the eye. This is often accompanied by a ring of redness around the outside of the cornea or clear covering at the front of the eye (ciliary flush). ? Excessive tearing of the eye(s). ? A small pupil that does not enlarge in the dark and stays smaller than the other eye's pupil. ? A whitish area that obscures the lower part of the colored iris. Sometimes this is visible when looking at the eye. Since iritis causes the eye to become red, it is often confused with a much less dangerous form of pink eye or conjunctivitis. One of the most important symptoms is sensitivity to light. Anytime there is redness, discomfort in the eye(s) and extreme light sensitivity, it is extremely important tosee an public address system operator as soon as possible. Pars Planitis ? Mild, progressive drop in vision. ? Floating spots in the field of vision in front of the eye. ? Development of a cataract. Choroiditis ? May have no symptoms. ? Progressive drop in vision. ? Loss of vision in an isolated area of peripheral vision (scotoma) or to the side. ? Sore, aching eye. TREATMENT Iritis ? Corticosteroid eye drops and dilating agent eye drops are often given. Corticosteroid eye drops are used to decrease inflammation. Dilating drops help to prevent scarring of the iris and the risk of the iris becoming stuck to the front surface of the lens. Follow your caregivers exact instructions on taking and stopping corticosteroid medications (drops or pills). ? Sometimes, the iritis will be so severe that it will not respond to commonly used medications. Ifthis happens, it may be necessary to use steroid injections. The injections are given under the eye's outer surface. Sometimes oral medications are given. Treatment used for iritis is usually made jhon individual basis. Pars Planitis ? If mild, no treatment may be required ? Corticosteroids are usually given orally or for severe cases, injections are given under the surface of the eye. Choroiditis ? If associated with an underlying disease, the disease itself is treated. ? Corticosteroids are usually administered by mouth (orally). ? Corticosteroid injections or other medicines specific are given to treat the cause of infection or inflammation. These injections are given into the interior cavity of the eye (intravitreal injection). ? If caused by a parasite or worm that can be seen by the ophthalmologists, laser treatments may beused to kill the parasite. Panuveitis ? Treatment depends upon the cause and severity of the inflammation. It may consist of any one, or a combination of the treatments outlined above. HOME CARE INSTRUCTIONS Your caregiver will give specific instructions regarding the use of eye medications or other medications. Follow all instructions in both taking and stopping the medications. SEEK IMMEDIATE MEDICAL CARE IF: ? You have redness of one or both eyes. ? You experience a great deal of light sensitivity. ? You have pain or aching in either eye. ? You notice a drop in vision in either eye. MAKE SURE YOU: ? Understand these instructions. ? Will watch your condition. ? Will get help right away if you are not doing well or get worse. Document Released: 01/07/2010 Document Revised: 01/02/2013 Document Reviewed: 01/07/2010 ExitCare? Patient Information ?2015 [employer]. This information is not intended to replace advice given to you by your health care provider. Make sure you discuss any questions you have with yourhealth care provider. AKHIL Hale MATTHEW R , have received the following patient education materials/instructions and haveverbalized understanding: Patient Education Materials: Uveitis Follow-up Instructions: With: Address: When: Jefe Coker [facility], [address], [place] [phone] Business (1) In 3 days 11/08/2018 Comments: wednesday morning patient to call at 9am With: Address: When: Michelle KAURPRIYAMILI [address] [place] [address] [address] Business (1) In 3 days 11/08/2018 Prescriptions: [dexamethasone-tobramycin ophthalmic (Tobradex 0.1%-0.3% Susp-Opth)] Patient Signature Date Clinician/Nurse Signature Date 11/05[facility]18 15:[facility] Vital Signs Date TimeVital SignValuePerforming [id number] 13:36-0400Body poxfju690.61 cmMargarita Monroe MD Work Phone: [facility]10-31-2025 13:36-0400 Body mass index (BMI) [Ratio]29.1 kg/w7MdymdmMargarita Monroe MD Work Phone: [facility]10-31-2025 13:36-0400 Body .16 kgMargarita Monroe MD Work Phone: [facility]10-31-2025 13:36-0400 Diastolic blood pphgekpf51 mm[Hg]Margarita Monroe MD Work Phone: [facility]10-31-2025 13:36-0400 Heart rate78 /minMargarita Monroe MD Work Phone: [facility]10-31-2025 13:36-0400 Systolic blood rzdiyjmh830 mm[Hg]Margarita Monroe MD Work Phone: [facility]08-11-2025 10:46-0400 Body xytqtzspewq59.39 [degF]Summer Workman PA Work Phone: [place] [phone] 10:46-0400Diastolic blood mm[Hg]Summer Workman PA Work Phone: [place] [phone] 10:46-0400Heart rate66 /min Summer Workman PA Work Phone: [place] [phone] 10:46-2311TnR6% (BldA) [Mass fraction]98 %Summer Workman PA Work Phone: [place] [phone] 10:46-0400Systolic blood uoqvoflw045 mm[Hg][facility] Workman PA Work Phone: [facility] HospitalSyxwoxrvms50-41-1868 09:07-0500Body rxruqt482.61 cm[facility]11-14[facility]2024 09:07-0500Body mass index (BMI) [Ratio]29 kg/p7XpemtulkkBrown Memorial Hospital11-14-2024 09:07-0500Body weight 95.7 kgBrown [facility]11-14-2024 09:07-0500Diastolic blood cwrefnmv62 mm[Hg][facility]11-14-2024 09:07-0500Heart rate63 /minBrown [facility] Hospital11-14-2024 09:07-0500Systolic blood oibnmbcf313 mm[Hg][facility]11-13-2023 08:30-0500Body kvrjqi648.88 cmMargarita Monroe Other noParQnow Other 11-13-2023 08:30-0500Body mass index (BMI) [Ratio] 28.69 kg/d0IhknsfMargarita Monroe Other [facility] Other 11-13-2023 08:30-0500Body tnuxve79.98 kgMargarita Monroe Other [facility] Other 11-13-2023 08:30-0500Diastolic blood ukdvybdh68 mm[Hg] Margarita Monroe Other [facility] Other 11-13-2023 08:30-0500Systolic blood mm[Hg] Margarita Monroe Other [facility] Other 09-15-2023 11:15-0400Body .88 cmMargarita Monroe Other [facility] Other 09-15-2023 11:15-0400Body mass index (BMI) [Ratio] 27.23 kg/l4OskkxfMargarita Monroe Other [facility] Other 09-15-2023 11:15-0400Body fjvyns75.08 kgMargarita Monroe Other [facility] Other 09-15-2023 11:15-0400Diastolic blood ymseqglt47 mm[Hg] Margarita Monroe Other [facility] Other 09-15-2023 11:15-0400Respiratory rate12 /minMargarita Monroe Other [facility] Other 09-15-2023 11:15-0400Systolic blood mm[Hg] Margarita Monroe Other [facility] Other Encounters Encounter DateEncounter TypeCare ProviderFacilityStart: 08-24-2025 End: 25-54-6392uiekpozkvtGuzahp E Braun MD Work Phone: [facility]: 08-24-2025 End: 78-31-0171Mvuofkj encounter procedureMargarita Monroe MD-[facility] Work Phone: Start: 08-24-2025 End: 46-90-4853Tofcwga encounter Tate Monroe MDCincinnati Shriners Hospitaltart: 06-04-2025 End: 31-25-7159Bmeuoq outpatient new 45 minutesKamran Vences PA Work Phone: [facility] CareComment on above:Diarrhea, unspecified type (Primary Dx)Start: 06-04-2025 End: 63-34-2095yanvlifwnhNJELNQ M WORKMANNot AvailableStart: 05-28-2025 End: 23-13-5844RznyaaRuzy Prenatt COTNorth [facility]flower [facility] Center EyeComment on above: Intermediate uveitis of left eye (Primary Dx)Start: 05-21-2025 End: 00-64-1395Gtctcdedd Yoon MD Work Phone: [facility] EyeStart: 05-21-2025 End: 97-51-1243Pfixjkedd Yoon MD Work Phone: [facility] EyeStart: 05-21-2025 End: 80-52-6982jshmgukoxmZBJTP M ALLENNot AvailableStart: 05-21-2025 End: 10-97-8481Hrzwdn outpatient new 45 Mp Yoon MD Work Phone: [facility] EyeComment on above:Intermediate uveitis of left eye (Primary Dx); KeratitisStart: 80-88-2381Jzhblma encounter statusCincinnati Shriners Hospitaltart: 09-07-2024 End: 00-39-8392epvycpxahwDinoepctoParkview Health [facility] Work Phone: Start: 09-07-2024 End: 27-03-8225Tddhxbydp for general adult medical examination without abnormal findingsCincinnati Shriners Hospitaltart: 09-07-2024 End: 48-23-3518Fcfcxlr encounter procedureDosher [facility] Work Phone: Start: 09-06-2023 End: 13-18-2667znjkezolpoUruncp Braun Other noTrumpIT Vaughn Burton Other Start: 70-00-0294Ueqefkwnm for general adult medical examination without abnormal findingsMargarita MonroeBlane [facility] ClinicStart: 19-95-6258Clizdgqr preventive med est patient 40-64yrsMarcia JonoMercy Health Defiance Hospital ClinicStart: 07-09-2023 End: 70-17-7998useeohbvohNijiil Braun Other [employer] Other Start: 90-39-7170Vlpqnj outpatient visit 15 minutes [facility]: 10-04-2020 End: 93-62-9597KflkgFaith Panda Work Phone: Hematology/OncologyStart: 09-18-2020 End: 82-99-5018Uduykpj encounter procedureExternal ProviderWestern Reserve Hospital Start: 56-73-5547Clijvqx OnlyExternal ProviderExternal-NonCCFStart: 08-31-2020 End: 05-75-1638Lqmkjyx encounter procedureMARCIA E BRAUNFacility:T0Dzxdi: 07-15-2020 End: 10-20-1295Afeughe encounter procedureMARCIA E BRAUNFacility:N4Nvfek: 04-01-2020 End: 12-24-1952Ohnmvtw encounter procedureMARCIA E BRAUNFacility:V7Xbnib: 03-22-2020 End: 17-93-8015Ppnbepq encounter procedureSTEVEN R ZIEBERFacility:H1 Procedures DateProcedureProcedure DetailPerforming ClinicianStart: 02-27-2984Kmxxtyieyjn Sheree Yoon MD Work Phone: Start: 59-09-3654VNDEJFFI LABExternal Provider Plan of Treatment DateCare ActivityDetailAuthorStart: 72-25-2466Vpucgpuze for malignant neoplasm of colonNOMS HealthcareStart: 90-48-8124Zwzcqpvxr vaccinationInfluenza Vaccine (#1)[facility]OM[facility] HealthcareStart: 06-05-2025 End: 79-86-7853Tadoignvqgvmzn difficile toxin A+B tcdA+tcdB genes [Presence] in Stool by DAVID with probe detectionClostridium difficile toxin Microbiology Routine Diarrhea, unspecified type Expected: 06/05/2025 (Approximate), Expires: 09/02/2025[facility] HealthcareComment on above:Expected: 06/05/2025 (Approximate), Expires: 09/02/2025Start: 06-05-2025 End: 74-50-9183Yykqcvhnpy.gastrointestinal.lower [Presence] in Stool by ImmunoassayOccult blood x 1, stool Lab Routine Diarrhea, unspecified type Expected: 06/05/2025, Expires: 09/02/2025[facility] HealthcareComment on above: Expected: 06/05/2025, Expires: 09/02/2025Start: 06-05-2025 End: 92-48-2743Idjfisyqcu elastase, fecalPancreatic elastase, fecal Lab Routine Diarrhea, unspecified type Expected: 06/05/2025, Expires: 09/02/2025[facility] HealthcareComment on above:Expected: 06/05/2025, Expires: 09/02/2025Start: 06-05-2025 End: 83-80-7888Ngajc cultureStool culture Microbiology Routine Diarrhea, unspecified type Expected: 06/05/2025, Expires: 09/02/2025[facility] HealthcareComment on above:Expected: 06/05/2025, Expires: 09/02/2025Start: 04-78-3455REXXXIRDAW CANCER SCREENING,SEE MODIFIERCOLORECTAL CANCER SCREENING,SEE MODIFIERMetroHealth Main Campus Medical Centertart: 94-46-1355JTTRJBHA VACCINE (1 of 2)SHINGRIX VACCINE (1 of 2) [facility] Centertart: 20-58-2051stCVZDBYFBEH CANCER SCREENING,SEE MODIFIER zzCOLORECTAL CANCER SCREENING,SEE MODIFIERArdmore ClinicStart: 06-25-2020 Influenza vaccinationINFLUENZA (#1)[facility] Centertart: 65-52-7498KRYZAOMB SCREENDIABETES SCREENMetroHealth Main Campus Medical Centertart: 13-35-2340IBWIA SCREENLIPID SCREEN [facility] Centertart: 32-09-3901Psrek microalbumin profileDTAP,TDAP,TD (1 - Tdap)[facility] Centertart: 20-44-5405BLCTGWSGS C SCREENINGHEPATITIS C SCREENING [facility] Centertart: 38-34-8020NTC SCREENINGHIV SCREENINGWestern Reserve Hospital Start: 20-42-2517Pmvblclqo for malignant neoplasm of colonNONC Healthcare Clostridioides difficile toxin A+B tcdA+tcdB genes [Presence] in Stool by DAVID with probe detectionClostridium difficile toxin Microbiology Routine Diarrhea, unspecified type Ordered: 06/04/2025[facility] HealthcareComment on above:Ordered: 06/04/2025omprehensive metabolic 2000 panel - Serum or PlasmaBrown Memorial HospitalPancreatic elastase, fecalPancreatic elastase, fecal Lab Routine Diarrhea, unspecified type Ordered: 06/04/2025[facility] HealthcareComment on above: Ordered: 06/04/2025Stool cultureStool culture Microbiology Routine Diarrhea, unspecified type Ordered: 06/04/2025[facility] Healthcare Work Phone: Comment on above:Ordered: 06/04/2025STOOL OCCULT BLOOD (IMMUNO)STOOL OCCULT BLOOD (IMMUNO) Lab Routine Diarrhea, unspecified type Ordered: 06/04/2025[facility] HealthcareComment on above:Ordered: 5CGolisano [facility]'s [facility] Immunizations Immunization DateImmunizationNotesCare JzuienanVwotigtg15-19-7301hnauzylsy virus vaccine, unspecified formulationSheree Yoon MD Work Phone: [facility] Healthcare Payers DatePayer CategoryPayerPolicy [id number] Health InsuranceUNM[facility] U[facility] CHOICE PLUS [id number] 2019-Present [id number] Health InsuranceUN[facility] .[id number] [id number] [id number] [id number] Social History DateTypeDetailFacilityTobacco smoking status NHISUnknown if ever smokedMetroHealth Main Campus Medical Centertart: 48-97-2307Lyc Assigned At BirthNot on fileArdmore ClinicExposure to SARS-CoV-2 (event)Not sureMetroHealth Main Campus Medical Centertart: 17-72-6813Icautje smoking status NHISUnknown if ever smokedNONC HealthcareStart: 91-81-9905Syi Assigned At [facility] Vaughn Burton Other Start: 09-07-2024 End: 35-13-2454Uvvnrzr smoking status NHISNever smoked tobacco (finding) [facility]tart: 21-90-1773YmhEosu (finding)[facility]tart: 18-88-5851Pea Assigned At [facility]tart: 61-74-2093XrvvdbqAugusta Health Clinical Notes 11-25-2020 to 06-04-2025 Note Date & CzvmRtjlKrnaomwe99-23-2257 History of Present illness Narrative* KEVIN Oleary - 06/04/2025 10:20 AM EDT Images from the original note were not included. [address] , [address] [facility], [address] P: [phone] F: [phone] HPI Historian of HPI: patient Sarah Weathers is a 54 y.o. male who presents today to the Urgent Care with the following complaints and denials which have been present for 2 week(s) C/O Denies Symptom Comments [] [x] Abd Pain Location: [x] [] Nausea [] [x] Vomiting [] [x] Loss of appetite [] [x] Fever [] [x] Chills [] [x] Radiation of pain [] [x] OTC Medication use [] [x] PMHx of Abd issues Additional Comments: pt has taken pepto OTC medication without relief Pt has had GI issues since 05/24. States he had a fever initially but that has subsided. Pt is stillhaving nausea and diarrhea. Pt would like the diarrhea treated. He reports he is eating well, drinking well. Denies any abd pain, had fever for a short time when this started on may 26 but none since the very beginning. Denies any blood in his stool, recent antibiotics other than drops in his eyes. States he might have many auto immune issues that have not been diagnosed but is not here for those issues. ROS A complete system ROS was performed and negative aside from the pertinent positives noted in the HPI and PE. PHYSICAL EXAM General Examination: alert, oriented, normal affect, well-appearing, in no acute distress, well developed, well nourished. Head: normocephalic, atraumatic Eyes: sclera non-icteric Heart: regular rate and rhythm, S1, S2 normal Lungs: clear to auscultation bilaterally. No wheezes, rales, rhonchi. Abd: soft, non-tender, no HSM, no palpable masses, no guarding or rigidity, negative rebound tenderness, negative finley's sign Extremities: no edema, no cyanosis Psych: alert, oriented, cognitive function intact, cooperative with exam. TREATMENT PLAN 1. Diarrhea, unspecified type (Primary) Discussed ddx and tx options. He is eating and drinking well, good appetite, one to two BM per day.I am going to get stool studies on him and will call with results. Otherwise continue normal diet, appears well hydrated and well nourished. Follow up with pcp. Return for any new/worse sx. Pt voiced understanding and agreement with the plan. All questions/concerns addressed. - Stool culture - Pancreatic elastase, fecal - STOOL OCCULT BLOOD (IMMUNO) - Clostridium difficile toxin - Clostridium difficile toxin; Future - Pancreatic elastase, fecal; Future - Stool culture; Future - Occult blood x 1, stool; Future - Clostridium difficile toxin - Pancreatic elastase, fecal - Stool culture - Occult blood x 1, stool documented in this [facility]07-28-2025 History of Present illness Narrative* Sheree Yoon MD - 05/21/2025 9:00 AM EDT No Known Allergies Past Medical History: Diagnosis Date Asthma (HCC) Uveitis Assessment/Plan Tobradex q2 SY tid documented in this [facility]11-13-2023 Evaluation note* Encounter Date Diagnosis Assessment Notes Treatment Notes Treatment Clinical Notes Aug, Well adult exam (ICD-10 - Z00.00 ) We have discussed the necessity of following up with PCP regularly as well as specialists, as needed. Discussed F/U with dentistry and optometry at least yearly. Discussed all preventative measures/ cancer screenings as applicable to this patient. Emphasized the importance of a reduced fat, low carb diet to promote heart health and controlled blood sugars. Reviewed social history and ensured patient is safe within the home today. Pt denies any abuse of alcohol, nicotine, caffeine or recreational drugs. I have ensured patient is of stable mental and physical health today. We have discussed appropriate F/U schedule as well as blood work and vaccinations that apply. All questions answered and p atient is sent home pleased, without concerns. FRM Study Course Other 09-15-2023 Evaluation note* Encounter Date Diagnosis Assessment Notes Treatment Notes Treatment Clinical Notes Jun, Bronchitis (ICD-10 - J40) Bronchitis: Care Instructions material was printed Pt is acutely sick with acute complicated bronchitis Recommend: Antibiotics: Azithromycin 50 mg po daily for 5 days Cough: Benzonatate FRM Study Course Other 04-09-2021 NoteHNO ID: [id number] Author: Cara Chandler Service: ? Author Type: Physician Pipe Line Walker Type: Progress Notes Filed: 01/31/2021 1:37 PM Note Text: PATIENT NAME: Sarah Weathers CLINIC NO.: [id number] ATTENDING PHYSICIAN: Dru Panda MD DATE OF SERVICE: January 31, 2021 ? (Elements copied from Dr. Panda's note dated November 01, 2020, have been reviewed and updated where appropriate, and all reflect current assessment and medical decision making during today's encounter, January 31, 2021) ? Diagnosis: ? 1.Thrombocytopenia ? 2. Uveitis ? Treatment History: ? 1. None ? HPI: Sarah Weathers is a 50 year old year old male here for follow up. Feels well and denies any new complaints at this time. No nausea and also diarrhea. ? He denies h/o excessive drinking. ? His work up including paraproteins, B12, Folate and also negative Hep studies, HIV, ROSALINO normal, YAHAIRA positive but Anti DS DNA was negative and additional serologies were negative. ? He did have CT of the chest and Abdomen and Pelvis 10/30/2020 with cirrhosis and also mild splenomegaly and trace pelvic ascites and also Gastroesophageal varices. HPI: Sarah Weathers is a 50 year old male who presents in follow up. Since his last visit he did see rheumatology and GI. His EGd and colonoscopy were done 01/15 and negative. He contineus to feel well and has no bleeding or bruising issues. SUBJECTIVE ROS: GENERAL: No weight loss, malaise or fevers., SEE HPI HEENT: Negative for frequent or significant headaches, No changes in hearing or vision, no nose bleeds or other nasal problems RESPIRATORY: Negative for cough, wheezing or shortness of breath. CARDIOVASCULAR: Negative for chest pain, leg swelling or palpitations. GI: Negative for abdominal discomfort, blood in stools or black stools or change in bowel habits : No history of dysuria, frequency or incontinence MUSCULOSKELETAL: Negative for: joint pain or swelling, back pain and muscle pain SKIN: Negative for lesions, rash, and itching. HEMATOLOGY/LYMPHOLOGY: Negative for prolonged bleeding, bruising easily or swollen nodes. NEURO: No history of headaches, syncope, paralysis, seizures or tremors All other systems reviewed are negative. Current Outpatient Medications Medication Sig - ALBUTEROL INHALATION Inhale as instructed. - polyethylene glycol 3350 (MIRALAX, GLYCOLAX) 17 gram/dose powder Use as directed for Miralax / Gatorade Bowel Prep Kit (Patient not taking: Reported on 01/08/2021 ) - Gatorade Sports Drink Use as directed for Miralax / Gatorade Bowel Prep Kit (Patient not taking: Reported on 01/08/2021 ) - Bisacodyl (DULCOLAX) 5 mg tab Use as directed for Miralax / Gatorade Bowel Prep Kit (Patient not taking: Reported on 01/08/2021 ) - MULTI-VITAMIN ORAL once daily. - celecoxib (CELEBREX) 100 mg capsule Take 1 capsule by mouth twice daily. - FLOVENT HFA 110 mcg/actuation inhaler INHALE 2 (TWO) puffs BY MOUTH TWICE DAILY No current facility-administered medications for this visit. PAST MEDICAL HISTORY Diagnosis Date - Asthma - Thrombocytopenia (HCC) PHYSICAL EXAM: BP 142/70 Pulse 60 Temp 36.5 ?C (97.7 ?F) (Temporal) Resp 16 Ht 182.9 cm (6' 0.01 ) Wt 90.2 kg (198 lb 12.8 oz) SpO2 100% BMI 26.96 kg/m? Exam limited to gross visualization where appropriate due to COVID-19. Gen.: This is an age-appropriate patient in no acute distress. Head: Appears atraumatic with no visible lesions. Eyes: Pupils equally round and reactive to light, extraocular muscles are intact. Neck: Supple. Mouth: Mucous membranes appeared to be moist. Respiratory: Appears to be respiring comfortably. Neurologic: Nonfocal to gross visualization. Alert and oriented ?3. Psychiatric: No evidence of inappropriate anxiety or depression. Skin: Visible areas of skin without rash, lesions, wounds or petechiae. LAB: Hemoglobin (g/dL) Date Value 01/31/2021 14.0 Hematocrit (%) Date Value 01/31/2021 41.4 WBC (k/uL) Date Value 01/31/2021 4.52 PATH: ? Imaging: CT of the chest and Abdomen and Pelvis 10/30/2020: ? 1. ?No evidence of intra-abdominal/intrapelvic lymphadenopathy. 2. ?Nodular hepatic contour compatible with cirrhosis. 3. ?Mild splenomegaly, trace pelvic ascites and small gastroesophageal varices compatible with portal hypertension. 1. ?No evidence of intrathoracic lymphadenopathy. 2. ?No evidence of active cardiopulmonary disease. ? ASSESSMENT/PLAN: 1. Thrombocytopenia This is likely secondary to underlying cirrhosis. Would recommend he continue to follow up with hepatology. He can get yearly labs with his PCP to monitor his platelets. 2. H/o uveitis Following with rheum, no definitive rheumatologic issue found. We will see him back as needed. ? KEVIN SANCHEZ-[facility]02-12-2021 NoteHNO ID: [id number] Author: Joaquin Hyde Rdms Service: Radiology Author Type: Formal Waiter/Waitress Type: Progress Notes Filed: 12/06/2020 2:35 PM Note Text: Radiology Service Progress Note PATIENT NAME: Sarah Weathers DATE OF SERVICE: December 06, 2020 TIME: 2:35 PM PATIENT IDENTITY VERIFICATION COMPLETED USING TWO (2) IDENTIFIERS: Name and Date of confirmed by patient verbally. FALL SCREENING: Has the patient had 2 falls in the last year or 1 fall with injury or currently using an Ambulatory Assistive Device (Walker, Cane, Wheelchair, Crutches, etc.)? No PATIENT GENDER DATA: Male PATIENT RELEVANT IMPLANT DATA REVIEWED: Not Applicable RADIOLOGY DEPARTMENT: Ultrasound PERIPHERAL IV DATA: Not applicable SIGNED BY: Alexa Poole RDMS December 06, 2020 2:35 [facility]02-01-2021 NoteHNO ID: [id number] Author: Alla Garcia Service: ? Author Type: Physician Type: Progress Notes Filed: 11/25/2020 10:48 PM Note Text: Summary: hx uveitis and apparent cirrhosis RHEUMATOLOGY OUTPATIENT VISIT DATE November 25, 2020 CC: Referred for uveitis Review of history: Sarah Weathers is a 50 year old gentleman with PMHx notable for liver cirrhosis (new diagnosis based on CT A/P 10/30/2020, unclear etiology), thrombocytopenia ~100k, asthma and uveitis. He has been referred to Rheumatology for evaluation of uveitis. He was recently evaluated by Hematology (Dr. Dru Panda) for thrombocytopenia. All the work up including B12, folate, paraproteins, HIV, Hep studies has been negative. Per hematology, his thrombocytopenia is likely related to underlying cirrhosis. He was also referred to Hepatology for further work up of cause of liver cirrhosis, which he is due to see next week. Denies significant alcohol use. In regards to uveitis: Started 2 years ago, was losing vision in L eye/vision getting cloudy, had redness and watering of eye as well as pain with full eye movements - NO photophobia. Went to urgent care, diagnosed as eye infection. But treatment did not work, later seen by Ophthalmology, and diagnosed with uveitis (Irene, SHANEL). He does not remember the exact type (anterior vs panuveitis). but he was treated with 'eye drops'seemingly steroid, abx and ultimately mydriatic when saw ophtho. Also, got 'some' oral pred. His symptoms resolved. Then symptoms came back 1 year later, same symptoms, treated again same way (longer taper of 'eye drops'), but no oral steroids. Complete resolution of symptoms. No recurrence of uveitis since. 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 Treated with eye drops. Also reports recurrent abdominal pain since he was less than 10 years old, occurred once a year, very severe in whole abdomen. Lasting several hours. No association with eating. Not associated with diarrhea or bloody stools. Abdomen wasn't sore to touch. Pain was achy in character. No h/o renal stones. Never got diagnosed with a cause. He has not had this pain since 2018. Has been taking Naproxen 220 mg BID for 15 years. No joint pains. No back pain. No back/joint AM stiffness. No rashes, except occasional eczema on his legs for 'years' No SOB/chest pain/cough/sweliings or lumps on body. No chronic diarrhea/blood in stools. 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 RHEUMATOLOGIC ROS: (-) Weight Loss, (-) Fatigue, (-) Fever, (-) Headache, (-) Scalp Tenderness, (-) Jaw Claudication, (+) Oral ulcers occasionally, (-) Epistaxis, (-) Dry Eyes, (-) Dry Mouth, (-) Rash, (-) Photosensitivity, (-), Skin Ulcers, (-) Purpura/Petechiae, (-) Skin Tightening, (-) Pleurisy, (-) Pericarditis/Pericardial effusion, (-) Back Pain, (-) Raynaud's, (-) DVT/PE Hx: (+) Asthma, (-) Chronic Sinusitis, (-) Psoriasis Family history: No rheumatologic disorders Allergies: ALLERGIES No Known Allergies Medications: Current outpatient prescriptions: Current Outpatient Medications on File Prior to Visit Medication Sig - FLOVENT HFA 110 mcg/actuation inhaler INHALE 2 (TWO) puffs BY MOUTH TWICE DAILY No current facility-administered medications on file prior to visit. No outpatient medications have been marked as taking for the 11/25/20 encounter (Appointment) with Alla Garcia. Social History: Social History Tobacco Use - Smoking status: Never Smoker - Smokeless tobacco: Never Used Substance Use Topics - Alcohol use: 1 drink a month - Drug use: Not Currently Family History: No family history on file. Past Surgical History: PAST SURGICAL HISTORY Procedure Laterality Date - HERNIA REPAIR HX Review of Systems: Answers for HPI/ROS submitted by the patient on 11/23/2020 Fever : No Recent Unintentional Weight Change: No Eye Pain: No Eye Redness: No Vision Disturbance: No Eye Dryness: No Nose Bleeds: No Sores in your Mouth: No Trouble Swallowing: No Dry Mouth: No Chest Pain: No Leg Swelling: No A Cough: No Shortness of Breath: No Pain with Breathing: No Heartburn: No Abdominal Pain: No Diarrhea: No Black Tarry Stools: No Blood in Urine: No Pain or Burning with Urination: No Joint Pain or Stiffness: No Muscle Weakness: No Muscle Aches: No Joint Swelling: No Morning Stiffness in Joints: No A Rash: No Skin Color Changes: No Hair Loss: No Nail Changes: No Headaches: No Numbness: No Memory Loss: No Swollen Glands: No REVIEW OF SYSTEMS General- No fever/chills/malaise/unintentional weight loss/loss of appetite Skin-No rash CVS- no chest pain/SOB/palpitations/leg swelling Respiratory-no cough/ chest pain/SOB GI- No nausea/vomiting/abdominal pain/diarrhea/constipation/melena/hematochezia -No burning micturition/dysuria/hematu (more content not included)...[facility]* Diagnosis Onset Date Resolution Status Admit Date Wellness examination acuteNovember 2023 9:02am [facility] Work Phone: Evaluation note* Diagnosis 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 [facility] Diagnosis Intermediate uveitis of left eye- Primary documented in this encounter [facility] HealthcareEvaluation note* Diagnosis Diarrhea, unspecified type- Primary documented in this encounter [facility] HealthcareEvaluation note* Diagnosis Onset Date Resolution Status Admit Date Screening PSA (prostate specific antigen ) acuteOctober 2024 1:22pmWellness examinationacuteOctober 2024 1:22pm [facility] Work Phone: History general Narrative - Reported* Type Description Date Medical History Asthma Medical HistoryOsteoarthritisSurgical HistoryHERNIA REPAIRHospitalization HistorySEE SURGICAL [facility] Vaughn Burton Other Reason for referral (narrative)No reason for referral information availableMer[facility] Work Phone: Summary Purpose Family History Relationship Condition Age at Onset Recorded Date/T porter father Arthritis Unknown HypertensionUnknown Advance Directives Advance Directive Response Recorded Date/ Time Advance Directives No August 9:00am Advance Directive Response Recorded Date/ Time Advance Directives No August 10:00am Chief Complaint and Reason for Visit Chief Complaint Admit Date wellness September 07, 2024 9:02am Reason for Visit Admit Date Wellness examination September 07, 2024 9:02am Chief Complaint Admit Date wellness August 24, 2025 1 :22pm Reason for Visit Admit Date Screening PSA (prostate specific antigen ) August 24, 2025 1:22pm Wellness examination August 24, 2025 1:22pm Additional Source Comments (unrecognized sect ion and content) No Status Records FoundNo Status Records FoundNo Status Records FoundNo Status Records FoundNo Status Records Found INFORMATION SOURCE (unrecogn ized section and content) DATE CREATED AUTHOR 03/29/2019 [facility] DATE CREATED AUTHOR AUTHOR'S ORGANIZ ATION 09/05/2020 [facility] DATE CREATED AUTHOR AUTHOR'S ORGANIZ ATION 01/16/2021 [facility] DATE CREATED AUTHOR AUTHOR'S ORGANIZ ATION 11/18/2021 [facility] DATE CREATED AUTHOR AUTHOR'S ORGANIZ ATION 06/05/2025 [facility] EPIC Source Comments (unrecognize d section and content) In the event this informatio n is protected by the Federal Confidentiality of Alcohol and Drug Abuse Patient Records regulations: The Federal rules restrict any use of the information to criminally investigate or prosecute any alcohol or drug abuse patient.[facility] the event this information is protected by the Federal Confidentiality of Alcohol and Drug Abuse Patient Records regulations: The Federal rules restrict any use of the information to criminally investigate or prosecute any alcohol or drug abuse patient.[facility] REASON FOR VISIT (unrecogniz ed section and content) ReasonCommentsEye ProblemReasonOnset DateCommentsMed Ulwoby3405/28/2025 Care Teams (unrecognized sec tion and content) Team Status: Active Member Role Status Dates Margarita Monroe MD Primary Care Provider Active Team Status: Inactive Member Role Status Dates Margarita Monroe MD Primary Care Provide r, Attending Provider Active Start: September 07, 2024 End: September 07, 2024 Team Status: Active Member Role/Relationship Status Dates Margarita Monroe MD Primary Care Provider Active Team Status: Inactive Member Role/Relationship Status Dates Margarita Monroe MD Primary Care Provider Active Start: August 24, 2025 End: August 24, 2025Margarita Monroe MDAttending ProviderActiveStart: August 24, 2025 End: August 24, 2025 Goals (unrecognized section and content) Goals may be documented in a n alternate section FOR RECORDS PERTAINING TO PATIENTS WHO ARE OR HAVE BEEN ENROLLED IN A CHEMICAL DEPENDENCY/SUBSTANCEABUSE PROGRAM, SOME INFORMATION MAY BE OMITTED. This clinical summary was aggregated from multiple sources. Caution should be exercised in using it in the provision of clinical care. This summary normalizes information from multiple sources, and as a consequence, information in this document may materially change the coding, format and clinical context of patient data. In addition, data may be omitted in some cases. CLINICAL DECISIONS SHOULD BE BASED ON THE PRIMARY CLINICAL RECORDS. [facility] [employer] [facility]. provides no warranty or guarantee of the accuracy or completeness of information in this document."
--- OUTSIDE RECORDS SUMMARY | 2025-09-21 06:31 | XMS_ITS | Clinical Summary ---
Author Organization [facility] Address [address] [place] [id number] Care Team Providers Care Certified Ski Patroller Name Role Phone Margarita De La Cruz MD Primary Care Provider [phone] Allergies No known active allergies Medications MedicationSigDispense QuantityRefillsLast FilledStart DateEnd DateStatus FLOVENT HFA 110 mcg/actuation inhaler INHALE 2 (TWO) puffs BY MOUTH TWICE DAILY09/29/2020Active MULTI-VITAMIN ORAL once daily. 10/25/1999Active celecoxib (CELEBREX) 100 mg capsule Take 1 capsule by mouth twice daily. 60 capsule ctive ALBUTEROL INHALATION Inhale as instructed.Active Active Problems ProblemNoted DateDiagnosed DateCirrhosis of liver01/08/2021 Assessment & Plan (01/08/2021 9:01 AM EDT): Assessment: pt recently diagnosed, following with Dr. Serrano Portal hfeihqujpdcw40/17/2021 Assessment & Plan (01/08/2021 9:02 AM EDT): Assessment: per Dr. Serrano's note; scheduled for EGD Asthma Assessment & Plan (01/08/2021 8:58 AM EDT): Assessment: stable Thrombocytopenia Assessment & Plan (01/08/2021 9:03 AM EDT): Assessment: has seen hematology, most recent platelet count in epic 105 Immunizations ImmunizationAdministration DatesNext DueCOVID-19 vaccine, unspecified cnorodyimmt86/04/2021,12/26/2020influenza (IIV4) vaccine, age 6 mo - 64 yr, quadrivalent, PF (AFLURIA, FLUARIX, FLULAVAL, FLUZONE)07/25/2020 Family History Medical HistoryRelationCommentsClotting DisorderNo Family History Social History Tobacco UseTypesPacks/DayYears UsedDateSmoking Tobacco: NeverSmokeless Tobacco: NeverAlcohol UseStandard Drinks/WeekCommentsYes0 (1 standard drink = 0.6 oz pure alcohol)1-2 drinks once per monthPHQ-2AnswerDate RecordedPHQ-2 Area Deprivation IndexAnswerDate RecordedNational Score (1-100), lower number is lower riskNot on file10/08/2020State Score (1-10), lower number is lower riskNot on file10/08/2020Data from: https://www.neighborhoodatlas.[facility].edu/. Last address used for calculationNot on file10/08/2020Sex and Gender Information ValueDate RecordedSex Assigned at DgsqjBgny97/30/2021 9:14 AM ESTLegal SexMale 05/13/2015 6:57 PM EDTGender XrmnbxxtJyfo48/30/2021 9:14 AM ESTSexual GebqssauivxByonjwcy75/30/2021 9:14 AM EST Last Filed Vital Signs Vital SignReadingTime TakenCommentsBlood Fcnpjknn334/7004 9:54 AM EDT Zbswq6698/09/2021 9:54 AM SZCDyqbdbzsqtx27.5 ??C (97.7 ??F)01/31/2021 9:54 AM EDTRespiratory Youb440201/31/2021 9:54 AM EDTOxygen Pjzgnhnrfz212%01/31/2021 9:54 AM EDTInhaled Oxygen Concentration--Krpoew27.2 kg (198 lb 12.8 oz)01/31/2021 9:54 AM GJNGnkyax764.9 cm (6' 0.01 )01/31/2021 9:54 AM EDTBody Mass Index26.96 01/31/2021 9:54 AM EDT Plan of Treatment Health MaintenanceDue DateLast DoneCommentsAnxiety Sfsizxecu80/03/1988Depression Eimgmvqwz98/03/1988DTaP,Tdap,Td Vaccine (1 - Tdap)1989Hepatitis B Vaccine (1 of 3 - 19+ 3-dose series)1989Lipid Huzqttgoz30/03/2005CT Colonography 2015Cologuard (FIT-DNA)2015Fecal Occult Blood2015Prostate Cancer Screening Ooqqumytyc11/03/7485Kusapmcpyzfps04/03/2015Pneumococcal Vaccine: 50+ (1 of 1 - PCV)2020Shingrix Vaccine (1 of 2)2020 Zllzwtxtmze16//1Colorectal Cancer Mlsuffhdb95/24/2022Diabetes Frtqelvfq91/09/326852/06/2021, 10/08/2020Covid-19 Vaccine (3 - 2024- season) 504/01/2021, 12/26/2020Influenza Vaccine (#1)510/, 07/25/2020HIV BbqeagefyTncfbybtr32/08/2021, 10/08/2020Hepatitis C Screening Veaisupkx12/08/2021, 10/08/2020 Procedures Procedure NamePriorityDate/TimeAssociated DiagnosisCommentsCOMPREHENSIVE METABOLIC PXAVIXrqxxjn32/09/2021 9:08 AM EDT Thrombocytopenia (HCC) NZFFPZOPPUDEjlzgsw76/24/2021 10:30 AM EDT HIV 1/2 COMBO WITH REFLEX TO CAWOGLBLRPUOQGUUpspgpu25/08/2021 11:14 AM EST Cirrhosis of liver with ascites, unspecified hepatic cirrhosis type (HCC) HEPATITIS C ANTIBODY IA WITH RMFMIOLSCUXIUwbpedp77/08/2021 11:14 AM EST Cirrhosis of liver with ascites, unspecified hepatic cirrhosis type (HCC) from Last 3 Months or Most Recently Relevant to Health Maintenance Results * (ABNORMAL) COMP METABOLIC PANEL (01/31/2021 9:08 AM EDT)ComponentValueRef RangeTest MethodAnalysis TimePerformed AtPathologist SignatureProtein, Total 6.66.3 - 8.0 g/dL01/31/2021 9:45 AM [facility] Cancer CareAlbumin4.43.9 - 4.9 g/dL01/31/2021 9:45 AM [facility] Cancer CareCalcium9.78.5 - 10.2 mg/dL01/31/2021 9:[address] [facility] CareBilirubin, Total1.20.2 - 1.3 mg/dL01/31/2021 9:45 AM [facility] Cancer CareAlkaline Heijbbqiklw5379 - 113 U/L 01/31/2021 9:45 AM [facility] Cancer MzhcEYJ3412 - 40 U/L 01/31/2021 9:45 AM [facility] Cancer RsdnCfeexri5409 - 99 mg/dL01/31/2021 9:[address] [facility] CareComment: The [place] Diabetes Association (ADA) provides guidance for cutoff [...] Standards of Medical Care in Diabetes 2016, [place] [employer] Association. Diabetes Care. 2016.39(Suppl 1). BRL967 - 24 mg/dL01/31/2021 9:45 AM [facility] Care Creatinine1.130.73 - 1.22 mg/dL01/31/2021 9:45 AM [facility] Cancer BapjScaznl581173 - 144 mmol/L01/31/2021 9:45 AM [facility] Cancer CarePotassium4.53.7 - 5.1 mmol/L01/31/2021 9:45 AM EDT [facility] Cancer LrssUjudsqgk66807 - 105 mmol/L01/31/2021 9:45 AM [facility] Cancer UrfdZH44193 - 30 mmol/L01/31/2021 9:45 AM [facility] Cancer CareAnion Gap7(L)9 - 18 mmol/L 01/31/2021 9:45 AM [facility] Cancer BjhlLLU6896 - 54 U/L 01/31/2021 9:45 AM [facility] Cancer CareeGFR->6004 9:45 AM [facility] Cancer [facility] NanticokeeGFR- All Other Races>60.01/31/2021 9:45 AM [facility] Cancer CareComment: eGFR (Estimated GFR) Units of measure: mL/min/1.73 [...] the eGFR may not accurately reflect actual GFR. Specimen (Source)Anatomical Location / LateralityCollection Method / Volume Collection TimeReceived TimeBloodBLOOD SPECIMEN / Awdbgmw3601/31/2021 9:08 AM EDT 01/31/2021 9:13 AM EDT Narrative Authorizing ProviderResult TypeResult StatusDru Panda MDLABORATORYFinal ResultPerforming OrganizationAddressCity/State/ZIP CodePhone Number [facility] [address] [address] [facility] Cancer [address] * COLONOSCOPY (01/15/2021 10:30 AM EDT)ComponentValueRef RangeTest Method Analysis TimePerformed AtPathologist SignatureTranscriptionBear River [facility] Hospital Gastro[facility] Patient Name: Greg Weathers Procedure Date: 01/15/2021 10:30 AM Date of : 1970 Admit Type: Outpatient Age: 50 Room: Endo 1 Gender: Male Note Status: Finalized Attending MD: Hansel Serrano MD Procedure: ? Colonoscopy Indications: ? Screening for colorectal malignant neoplasm Providers: ? Hansel Serrano MD Patient Profile: ? This is a 50 year old male. Refer to note in patient ? chart for documentation of history and physical. Last ? Colonoscopy: none. The patient's first colonoscopy is ? today. Referring Physician: Medicines: ? See the Anesthesia note for documentation of the ? administered medications Complications: ? No immediate complications. Requesting Provider: Procedure: ? Pre-Anesthesia Assessment: ? - Prior to the procedure, a History and Physical was ? performed, and patient medications and allergies were ? reviewed. The patient's tolerance of previous ? anesthesia was also reviewed. The risks and benefits ? of the procedure and the sedation options and risks ? were discussed with the patient. All questions were ? answered, and informed consent was obtained. Prior ? Anticoagulants: The patient has taken no previous ? anticoagulant or antiplatelet agents. ASA Grade ? Assessment: III - A patient with severe systemic ? disease. After reviewing the risks and benefits, the ? patient was deemed in satisfactory condition to ? undergo the procedure. ? After I obtained informed consent, the scope was ? passed under direct vision. Throughout the procedure, ? the patient's blood pressure, pulse, and oxygen ? saturations were monitored continuously. The 1695 ? PCF-H180 AL was introduced through the anus and ? advanced to the terminal ileum, with identification ? of the appendiceal orifice and IC valve. The ? colonoscopy was performed without difficulty. The ? patient tolerated the procedure well. The quality of ? the bowel preparation was excellent. The quality of ? the bowel preparation was evaluated using the BBPS ? ([place] Bowel Preparation Scale) with scores of: ? Right Colon = 3, Transverse Colon = 3 and Left Colon ? = 3 (entire mucosa seen well with no residual ? staining, small fragments of stool or opaque liquid). ? The total BBPS score equals 9. Anatomical landmarks ? were photographed. Scope Withdrawal Time: 0 hours 11 minutes 5 seconds Moderate Sedation: ? MAC anesthesia was administered by the anesthesia team. Total Procedure Duration: 0 hours 15 minutes 15 seconds Findings: ? The perianal and digital rectal examinations were normal. ? The terminal ileum appeared normal. ? Internal hemorrhoids were found during retroflexion. The hemorrhoids ? were small. ? The exam was otherwise without abnormality. Impression: ?- The examined portion of the ileum was normal. ? - Internal hemorrhoids. ? - The examination was otherwise normal. ? - No specimens collected. Recommendation: ?- Discharge patient to home. ? - Resume previous diet. ? - Continue present medications. ? - Repeat colonoscopy in 10 years for screening ? purposes. ? - Return to my office as previously scheduled. ? - Patient has a contact number available for ? emergencies. The signs and symptoms of potential ? delayed complications were discussed with the ? patient. Return to normal activities tomorrow. ? Written discharge instructions were provided to the ? patient. Attending Participation: ? I personally performed the entire procedure. Scope In: 10:55:40 AM Scope Out: 11:10:55 AM MD Hansel Ramirez MD 01/15/2021 11:13:38 AM This report has been signed electronically by Hansel Serrano MD Number of Addenda: 0 Note Initiated On: 01/15/2021 10:30 AM Estimated Blood Loss: ? Estimated blood loss: none.DIGESTIVE DISEASE INSTITUTESpecimen (Source) Anatomical Location / LateralityCollection Method / VolumeCollection Time Received Time01/15/2021 10:30 AM EDT Narrative Authorizing ProviderResult TypeResult StatusImad Maggie MDDIGESTIVE DISEASE REGIONALFinal ResultPerforming OrganizationAddressCity/State/ZIP CodePhone Number [facility] [address] [place] [address] [facility] * HIV 1 2 COMBO(AG/AB),WITH REFLEX TO DIFFERENTIATION (12/02/2020 11:14 AM EST) ComponentValueRef RangeTest MethodAnalysis TimePerformed AtPathologist SignatureHIV 12 Combo (Ag/Ab)Non ReactiveNon Lstwpmmc61/08/2021 6:43 PM EST [facility] LaboratoriesHIV 1/2 Ab ConfirmatoryTest Not Indicated 12/02/2020 6:43 PM [facility] LaboratoriesHIV InterpretationNegative 12/02/2020 6:43 PM [facility] LaboratoriesComment: No evidence of HIV-1 or HIV-2 infection. Should recent infection be suspected, repeat testing may be considered 2-3 weeks after this draw. HIV Information: [place] Rev. Code 3701.243(E): This information has been disclosed to you from confidential records protected from disclosure by state law. ??You shall make no further disclosure of this information without the specific, written, and informed release of the individual to whom it pertains or as otherwise permitted by state law. A general authorization for the release of medical or other information is not sufficient for the purpose of the release of HIV test results or diagnoses. Specimen (Source)Anatomical Location / LateralityCollection Method / Volume Collection TimeReceived TimeBloodBLOOD SPECIMEN / Ffpcvns8812/02/2020 11:14 AM EST 12/02/2020 11:16 AM EST Narrative Authorizing ProviderResult TypeResult StatusImad Maggie MDLABORATORYFinal Result Performing OrganizationAddressCity/State/ZIP CodePhone Number [facility] [address] [place] [address] [facility] [address] [place] [address] * HEP C AB IA W/CONF SCRN (12/02/2020 11:14 AM EST)ComponentValueRef RangeTest MethodAnalysis TimePerformed AtPathologist SignatureHep C Antibody IANegative Rdqwyzuw87/08/2021 6:42 PM ESTMag[facility] LaboratoriesSpecimen (Source) Anatomical Location / LateralityCollection Method / VolumeCollection Time Received TimeBloodBLOOD SPECIMEN / Cssrrqi0912/02/2020 11:14 AM EST12/02/2020 11:16 AM EST Narrative Authorizing ProviderResult TypeResult StatusImad Maggie MDLABORATORYFinal Result Performing OrganizationAddressty/State/ZIP CodePhone Number [facility] [address] [place] [address] [facility] [address] [place] [address] from Last 3 Months or Most Recently Relevant to Health Maintenance Insurance Advance Directives TypeDate RecordedPatient RepresentativeExplanationAdvance Directive(s)01/15/2021 9:23 AM Care Teams Team MemberRelationshipSpecialtyStart DateEnd Date Margarita De La Cruz MD [address] [place] [address] PCP - GeneralFamily Cbxjsxqp58/16/20
--- OUTSIDE RECORDS SUMMARY | 2025-09-21 06:31 | XMS_ITS | Encounter Summary ---
Author Organization [facility] Address [address] [place] [address] Care Team Providers Care Transport Manager Name Role Phone Margarita De La Cruz MD Primary Care Provider [phone] Encounter Details DateTypeDepartmentCare Team (Latest Contact Info)Xmwiwgbdgbg06/21/2025Travel Social History Tobacco UseTypesPacks/DayYears UsedDateSmoking Tobacco: NeverSmokeless Tobacco: NeverSex and Gender InformationValueDate RecordedSex Assigned at BirthNot on fileLegal VvuLdvq0502/22/2023 8:35 PM EDTGender IdentityNot on fileSexual OrientationNot on filedocumented as of this encounter Plan of Treatment DateTypeDepartmentCare Team (Latest Contact Info)Caiofsssihg70/22/2025 11:30 AM ESTOffice Visit [facility] [address] [phone] Gaston Yuan MD [address] [address] documented as of this encounter Visit Diagnoses Not on filedocumented in this encounter Care Teams Team MemberRelationshipSpecialtyStart DateEnd Date Margarita De La Cruz MD [address] [facility] [place] [phone] PCP - GeneralFamily Idwejfwu05/21/25documented as of this encounter
--- OUTSIDE RECORDS SUMMARY | 2025-09-21 06:31 | XMS_ITS | Clinical Summary ---
[facility] Organization [facility] Address [id number] [place] [address] Care Team Providers Care Escrow Officer Name Role Phone Unavailable Primary Care Provider Unavailabl e Social History Tobacco UseTypesPacks/DayYears UsedDateSmoking Tobacco: Never AssessedChildcare AnswerDate OgkrdhyySusxbuvhyTbzmccm91/12/2019EmploymentAnswerDate Recorded VyeikohdxoPatlwnu84/12/2019Sex and Gender InformationValueDate RecordedSex Assigned at BirthNot on fileLegal ZoaLdso5305/30/2015 12:09 PM EDTGender Identity Not on fileSexual OrientationNot on file Plan of Treatment Not on file Medical Devices Not on file
--- OUTSIDE RECORDS SUMMARY | 2025-09-21 06:31 | XMS_ITS | Clinical Summary ---
Author Organization [facility] Address [address] [place] [address] Phone Care Team Providers Care Scrap Sorter Name Role Phone Unavailable Primary Care Provider Unavailabl e Social History Tobacco UseTypesPacks/DayYears UsedDateSmoking Tobacco: Never AssessedSex and Gender InformationValueDate RecordedSex Assigned at BirthNot on fileLegal Sex Male09/19/2022 7:10 PM ESTGender IdentityNot on fileSexual OrientationNot on file Plan of Treatment Not on file
--- OUTSIDE RECORDS SUMMARY | 2025-09-21 06:31 | XMS_ITS | Clinical Summary ---
Author Organization [facility] Healthcare Address [address] [place] [address] Care Team Providers Care Software Asset Manager Name Role Phone Margarita De La Cruz MD Primary Care Provider [phone] Allergies No known active allergies Medications MedicationSigDispense QuantityRefillsLast FilledStart DateEnd DateStatus Pulmicort Flexhaler 180 MCG/ACT inhaler Inhale 2 puffs in the morning and 2 puffs before bedtime.5Active celecoxib (CeleBREX) 100 MG capsule Take 100 mg by mouth in the morning and 100 mg before bedtime.5Active multivitamin with minerals (Centrum) 9-200 mg-mcg tablet split tablet 1 vcxjen924Active Active Problems ProblemNoted DateDiagnosed DateUmbilical hernia without obstruction and without aklhwfnq35/21/2025 Encounters DateTypeDepartmentCare WmwkKptskoupvic46/24/6080Lyvisk14/21/2025 10:[address] [facility] [address] [facility] [address] [place] [phone] Gaston Yuan MD Umbilical hernia without obstruction and without gangrene (Primary Dx)09/14/2025 Guksqm5208/29/2025Travelfrom Last 3 Months Family History RelationNameStatusCommentsFatherDeceasedMotherAlive Social History Tobacco UseTypesPacks/DayYears UsedDateSmoking Tobacco: NeverSmokeless Tobacco: Never Tobacco Cessation:Counseling Given: Not Answered Sex and Gender InformationValueDate RecordedSex Assigned at BirthNot on file Legal UfaPpya9902/22/2023 8:35 PM EDTGender IdentityNot on fileSexual Orientation Not on file Last Filed Vital Signs Vital SignReadingTime TakenCommentsBlood Bypewomn897/7411 10:34 AM EST Ycwpy255706/04/2025 10:46 AM KKXWlcptdfncue88.3 ??C (97.4 ??F)06/04/2025 10:46 AM EDTRespiratory Rate--Oxygen Tzzanimpqp01%06/04/2025 10:46 AM EDTInhaled Oxygen Concentration--Huqwyh39.3 kg (210 lb)09/14/2025 10:34 AM KSYWoxouz486.9 cm (6') 09/14/2025 10:34 AM ESTBody Mass Index28.4809/14/2025 10:34 AM EST Plan of Treatment DateTypeDepartmentCare Team (Latest Contact Info)Mxdqidrvzwr97/22/2025 11:30 AM ESTOffice Visit [facility] [address] [phone] Gaston Yuan MD [address] [address] Health MaintenanceDue DateLast DoneCommentsCT Ugtezggkngfb1970FIT-DNA 1970FIT06/27/19707320Ksyhdgsjvqqpl1970COVID-19 Vaccine ( season)511/, 01/26/2021, 01/05/2021, Additional history exists FOBT8/3289Exhatrmmhmd80/24/203103/1Colorectal Cancer Pteirrrfr15/24/2031Influenza DueltxbRmkybjcad50/06/2025, 08/16/2024, 08/05/2023, Additional history existsPneumococcal Vaccine: Pediatrics (0 to 5 Years) and At- Risk Patients (6 to 64 Years)Aged OutNo longer eligible based on patient's age to complete this topic Procedures Procedure NamePriorityDate/TimeAssociated DiagnosisCommentsOCCULT BLOOD X 1, VGNTAHhdgqlm82/11/2025 9:00 PM EDT Diarrhea, unspecified type from Last 3 Months or Most Recently Relevant to Health Maintenance Results * (ABNORMAL) Occult blood x 1, stool (06/04/2025 9:00 PM EDT)ComponentValueRef RangeTest MethodAnalysis TimePerformed AtPathologist SignatureOCCULT BLOOD, FECAL, IAPositive(A)NegativeLABCORPSpecimen (Source)Anatomical Location / LateralityCollection Method / VolumeCollection TimeReceived TimeStoolRectal contents / Jzupgkk5406/04/2025 9:00 PM EDT06/12/2025 Narrative [facility] - 06/12/2025 3:07 PM EDT Performed at: - [facility] [address], [place], [place] ??[id number] Lan Administrator: Jerry Rahman PhD, Phone: ??[phone] Authorizing ProviderResult TypeResult StatusSummer M Workman PALAB BODY FLUIDS AND STOOLS ORDERABLESFinal ResultPerforming OrganizationAddressCity/State/ZIP CodePhone Number [facility] from Last 3 Months or Most Recently Relevant to Health Maintenance Insurance Care Teams Team MemberRelationshipSpecialtyStart DateEnd Date Margarita De La Cruz MD [address] [place] [address] PCP - GeneralFamily Eiaobijj75/21/25
--- OUTSIDE RECORDS SUMMARY | 2025-09-21 06:31 | XMS_ITS | Encounter Summary ---
Author Organization [facility] Address [address] [place] [address] Care Team Providers Care Huc Name Role Phone Margarita De La Cruz MD Primary Care Provider [phone] Encounter Details DateTypeDepartmentCare Team (Latest Contact Info)Dotgfkbhaum72/24/2025Travel Social History Tobacco UseTypesPacks/DayYears UsedDateSmoking Tobacco: NeverSmokeless Tobacco: NeverSex and Gender InformationValueDate RecordedSex Assigned at BirthNot on fileLegal MnhDhul2702/22/2023 8:35 PM EDTGender IdentityNot on fileSexual OrientationNot on filedocumented as of this encounter Plan of Treatment DateTypeDepartmentCare Team (Latest Contact Info)Dzqqwwtrlxq25/22/2025 11:30 AM ESTOffice Visit [facility] [address] [phone] Gaston Yuan MD [address] [address] documented as of this encounter Visit Diagnoses Not on filedocumented in this encounter Care Teams Team MemberRelationshipSpecialtyStart DateEnd Date Margarita De La Cruz MD [address] [facility] [place] [phone] PCP - GeneralFamily Preyhkbe71/21/25documented as of this encounter
[2025-09-21 07:04] LABS: Anion Gap 10.4; Blood Urea Nitrogen 22.0 mg/dL (7.0-18.0); Calcium 9.0 mg/dL (8.5-10.1); Carbon Dioxide 30.0 mmol/L (21.0-32.0); Chloride 105 mmol/L (98-107); Estimated GFR (African America >60 (>=60 mL/min/1.73m^2); Estimated GFR (Non-African Ame 55 (>=60 mL/min/1.73m^2); Glucose 99 mg/dL (74-106); Potassium 4.4 mmol/L (3.5-5.1); Sodium 141 mmol/L (136-145)
== END 2025-09-21 06:26 | disposition home or self-care (01) ==
LOC: LAB 06:28
PROVIDERS: PCP Family Medicine; Visit Provider Family Medicine
DX: Z00.00 Encounter for general adult medical examination without abnormal findings (principal); Z12.5 Encounter for screening for malignant neoplasm of prostate
CPT/HCPCS: 36415; 80048; G0103